=== PATIENT | male | born 1940 | race Caucasian/White ===

== ENCOUNTER 2018-08-11 07:04 | Outpatient (CLI) | payer MEDICARE, OTHER, SELFPAY ==
[2018-08-11 07:58] LABS: Anion Gap 5.7 mmol/L (3-11); BUN 9 mg/dL (7-18); CO2 29.3 mmol/L (21.0-32.0); CREATININE 0.61 mg/dL (0.70-1.30); Calcium 9.1 mg/dL (8.5-10.1); Chloride 99 mmol/L (98-107); Cholesterol 128 mg/dL (50-200); Glucose 93 mg/dL (70-100); HDL Cholesterol 60 mg/dL (40-60); LDL CHOLESTEROL 64 mg/dL (<100); Sodium 134 mmol/L (136-145); Triglyceride 41 mg/dL (30-150)
== END 2018-08-11 07:24 ==
PROVIDERS: PCP Nurse Practitioner Family; Visit Provider Nurse Practitioner Family
DX: E78.5 Hyperlipidemia, unspecified (principal); I10 Essential (primary) hypertension
CPT/HCPCS: 36415; 80048; 80061; 83721

== ENCOUNTER 2019-01-07 07:00 | Inpatient (IN) | payer MEDICARE, OTHER, SELFPAY ==
[2019-01-07] VITALS (21 sets, daily range): BP systolic 109–177; BP diastolic 62–97; PULSE 78–101; RESP 16–20; TEMP 35.6–37.1; O2SAT 84–99
--- NOTE | 2019-01-07 07:02 | DI.RAD_ITS ---
EXAM: XR HIP RT COMPLETE AP PELVIS INDICATION: pain s/p fall. COMPARISON: No exams were available for comparison TECHNIQUE: 2D digital imaging was performed. FINDINGS: Three views were obtained and show intertrochanteric fracture of the femur with moderate displacement . No additional fracture seen. IMPRESSION:
--- NOTE | 2019-01-07 07:03 | ED.GENADUL_ITS ---
Discharge Plan Disposition Patient Disposition: [facility] INPATIENT Condition: Stable Discharge Details Chief Complaint: Orthopedic Clinical Impression: Closed fracture of right hip Primary Care Provider: Yanely Lobato ED Provider: Tavo Du Home Meds and New Rx's Prescriptions: No Action fluticasone propion-salmeterol [Advair Diskus] 250-50 mcg/dose blister with device 1 inh IH BID Qty: 3 RF: 3 atorvastatin 40 mg tablet 40 mg PO DAILY Qty: 90 RF: 3 lisinopril 5 mg tablet 5 mg PO DAILY Qty: 90 RF: 3 albuterol sulfate [ProAir HFA] 90 mcg/actuation HFA aerosol inhaler 1 - 2 puff Inhalation .Q4-6H PRN (Reason: shortness of breath or wheezing) Qty: 3 RF: 3 Medical Decision Making 78 yo male comes in after he was walking his yellow lab and the dog pulled on his leash causing the patient to fall over and land on his right hip. Denies any loc and did not hit his head. Has no headache, neck pain, chest pain, abd pain. Has right hip pain over lateral portion of the hip. He has limited rom and even on passive rom can only slight elevate at hip joint due to pain. No pain in mid, distal femur, knee tib/fib ankle or foot and has intact sensation and pulses. Will xray the hip to eval for fx. HAs a skin tear on right forearm but has no pain or other deformity and full rom of the joints so do not feel xray indicated. Will have nursing place steri strips. xray on my read shows hip fracutre on the right, will consult with orthopedics Dr. Espinosa requests admission to hospitalist, could do surgery this afternoon if cleared. Spoke with Dr. Redman who accepts for admission Differential Diagnosis Differential Diagnosis: fracture, contusion, sprain, strain Imaging Data Radiologic Study: Attestation: I personally reviewed and interpreted this imaging study as follows: Imaging: X-Ray My impression: hip fracture Radiologic Study #2: Attestation: I personally reviewed and interpreted this imaging study as follows: Imaging: X-Ray My impression: no acute findings on chest xray HPI General Mode of arrival: EMS . Date/Time Provider Initiated Documentation: 01/07/19 07:02 . Limitations to Documentation: no limitations . Information obtained by: patient . History of Present Illness 78 year old M presents to the emergency department with the chief complaint of right hip pain, described as moderate, Quality is described as aching, and is localized to the lower extremity. Patient reports no radiation. Patient started experiencing this hour(s) (1) Patient did receive the following treatments prior to arrival, none Related Data Home Medications Medication Instructions Recorded Confirmed atorvastatin 40 mg tablet 40 mg PO DAILY #90 tab-cap 05/15/18 01/07/19 lisinopril 5 mg tablet 5 mg PO DAILY #90 tab-cap 05/15/18 01/07/19 fluticasone 250 mcg-salmeterol 50 1 inh IH BID #3 device 08/16/18 01/07/19 mcg/dose blistr powdr for inhalation albuterol sulfate 90 mcg/actuation 1 - 2 puff INHALATION .Q4-6H PRN 10/25/18 01/07/19 aerosol inhaler #3 unit Previous Rx's Medication Instructions Recorded atorvastatin 40 mg tablet 40 mg PO DAILY #90 tab-cap 05/15/18 lisinopril 5 mg tablet 5 mg PO DAILY #90 tab-cap 05/15/18 fluticasone 250 mcg-salmeterol 50 1 inh IH BID #3 device 08/16/18 mcg/dose blistr powdr for inhalation albuterol sulfate 90 mcg/actuation 1 - 2 puff INHALATION .Q4-6H PRN 10/25/18 aerosol inhaler #3 unit Allergies Allergy/AdvReac Type Severity Reaction Status Date / Time aspirin Allergy Unknown Unverified 01/07/19 07:15 hydrochlorothiazide AdvReac Mild Low Na+, Unverified 01/07/19 07:15 low Cl-, headaches ANIMAL DANDER Allergy Mild COUGH Uncoded 01/07/19 07:15 MOLDS AND SMUTS Allergy Mild ASTHMA Uncoded 01/07/19 07:15 Review of Systems Review of Systems ROS Unobtainable: All systems reviewed & are unremarkable except as noted in HPI and below Constitutional Constitutional: Denies chills, Denies fever(s) and Denies weakness ENT Ears, Nose, Mouth, and Throat: Denies change in voice Cardiovascular Cardiovascular: Denies chest pain and Denies dyspnea Respiratory Respiratory: Denies cough and Denies dyspnea Gastrointestinal Gastrointestinal: Denies abdominal pain, Denies nausea and Denies vomiting Neurologic Neurologic: Denies weakness PFSH Social History Smoking/Tobacco Use Status: Former Tobacco Use Alcohol Intake: current Alcohol Intake frequency: 0-2 drinks per day Drug use: Never Substance use type: does not use Adopted: No Caregiver/Support person: No Foster care: No Household members: spouse Number of Children: 10 Communication Needs: None Pets and animals: Yes Pets and animals: dog(s) Sexually active: No Current gender identity: male What type of physical activity do you participate in: walking and regular exercise Frequency: daily Seatbelt use: always Water heater temp set <120 deg: Yes Working smoke detector in home: Yes Fire extinguisher in home: Yes Carbon monox detector in home: Yes Firearms in home: Yes Do you feel safe at home: Yes Do you feel safe in your relationship?: Yes Exam Const General: no acute distress Orientation: alert HENMT Head: normal to inspection Ears: external ears normal General nose exam: external nose normal Mouth: moist mucous membranes Eyes General: appearance normal, both eyes and all related structures Neck Neck: normal visual inspection Resp Effort & Inspection: normal respiratory effort and able to speak in complete sentences Cardio Rate: regular rate Skin General skin exam: no rashes or lesions noted Neuro General: alert and oriented x3 Extrem General: normal capillary refill Psych Mental Status: mental status grossly normal
--- NOTE | 2019-01-07 07:26 | DI.RAD_ITS ---
EXAM: XR CHEST 1V IN DI DEPT INDICATION: hip fracture. COMPARISON: CHEST 2 VIEWS PA,LAT from 03/30/2010 TECHNIQUE: 2D digital imaging was performed. FINDINGS: The heart is not enlarged. Lungs show evidence of COPD and scarring, no focal consolidation seen. N o pleural effusion seen on this supine view. IMPRESSION:
--- NOTE | 2019-01-07 07:52 | DI.VRAD_ITS ---
PROCEDURE INFORMATION: Exam: XR Right Hip with Pelvis when Performed Exam date and time: 01/07/2019 7:22 AM Clinical history: 78 years old, male; Injury or trauma; Fall; Initial encounter; Blunt trauma (contusions or hematomas); Right; Hip TECHNIQUE: Imaging protocol: XR Right hip with pelvis when performed. Views: 2 or 3 views. COMPARISON: No relevant prior studies available. FINDINGS: Bones/joints: There is a mildly displaced, comminuted intertrochanteric fracture of the right femur without evidence of significant angulation. No dislocation. Soft tissues: Soft tissue swelling around the right hip. IMPRESSION: Right intertrochanteric fracture without dislocation. Dictated and Authenticated by: Yakelin Cronin MD. Ordering:MIRTHA Vo MD
--- NOTE | 2019-01-07 07:54 | DI.VRAD_ITS ---
PROCEDURE INFORMATION: Exam: XR Chest, 1 View Exam date and time: 01/07/2019 7:31 AM Clinical history: 78 years old, male; Pre-operative exam; Cardiovascular screening and respiratory screening exam TECHNIQUE: Imaging protocol: XR of the chest Views: 1 view. COMPARISON: No relevant prior studies available. FINDINGS: Lungs: Hyperaeration. Linear atelectasis or fibrotic changes are seen in the lower lungs. Mild peribronchial thickening. No evidence of pneumonia. Pleural space: Unremarkable. No pleural effusion. No pneumothorax. Heart/Mediastinum: Unremarkable. No cardiomegaly. Bones/joints: Unremarkable. IMPRESSION: No acute findings. COPD. Dictated and Authenticated by: Yakelin Cronin MD. Ordering:MIRTHA Vo MD
[2019-01-07 08:00] LABS: Abs Immature Grans 0.04 k/cumm (0.0-0.09); Absolute Basophil Count 0.02 k/cumm (0.0-0.2); Absolute Eosinophil Count 0.26 k/cumm (0.0-0.7); Absolute Lymphocyte Count 1.82 k/cumm (1.2-3.4); Absolute Monocyte Count 0.58 k/cumm (0.11-0.7); Basophils % 0.2; Eosinophils % 3.2; HCT 42.9 % (40.0-50.0); HGB 14.4 g/dL (13.5-17.5); Immature Grans % 0.5; Lymphocytes % 22.1; Mean Corp. HGB Concentration 33.6 g/dL (32.0-36.0); Mean Corpuscular Hemoglobin 30.1 pg (27.0-33.0); Mean Corpuscular Volume 89.6 fL (80-95); Mean Platelet Volume 8.7 fL (8.0-11.0); Monocytes % 7.1; Neutrophils % 66.9; Platelet Count 296 x1000/uL (130-400); RBC 4.79 m/cumm (4.50-6.00); RBC Distribution Width 12.7 % (11.8-14.1); White Blood Cell Count 8.22 k/cumm (4.4-10.8)
[2019-01-07 08:11] LABS: PTT Activated 28.1 sec (21.0-31.4); Prothrombin Time 10.1 sec (9.3-11.0)
[2019-01-07 08:14] LABS: ALT 27 U/L (16-63); AST 23 U/L (15-37); Albumin 3.2 g/dL (3.4-5.0); Alkaline Phosphatase 75 U/L (46-116); Anion Gap 5.6 mmol/L (3-11); BUN 10 mg/dL (7-18); Bilirubin, Total 0.6 mg/dL (0.2-1.0); CO2 30.4 mmol/L (21.0-32.0); CREATININE 0.69 mg/dL (0.70-1.30); Calcium 8.9 mg/dL (8.5-10.1); Chloride 98 mmol/L (98-107); Glucose 115 mg/dL (70-100); Magnesium 1.7 mg/dL (1.8-2.4); Potassium 4.6 mmol/L (3.5-5.1); Sodium 134 mmol/L (136-145); Total Protein 7.4 g/dL (6.4-8.2)
[2019-01-07 08:18] LABS: Troponin I < 0.05 ng/mL (0.00-0.06)
[2019-01-07] MEDS: Normal Saline 1,000 ML 125 ML IV ×2 (09:41→17:00)
[2019-01-07] MEDS: Bupivacaine LIPOSOME/PF 133 MG/10 ML VIAL IJ (11:05)
--- NOTE | 2019-01-07 11:13 | W.PM.HP.N ---
Date of service: 01/07/19 Time of Service: :13 Assessment and Plan Assessment and plan (1) Hip fracture: Status: Acute Assessment and plan: For surgical repair on the afternoon of admission - Patient has non-ischemic ECG changes with development of a new RBBB. This however is more likely on the basis of underlying pulmonary disease than CAD (i.e. PHTN in setting of long-standing lung disease). Mr. Boss has 4+ METS, is active, and without any symptoms of active coronary or cardiac disease. He also has no history of or clinical evidence of DM, CKD, or CAD/CHF. May proceed with planned, likely moderate risk procedure without need for further cardiac work-up or medication changes. However, will need further evaluation of this new ECG finding in the future. (2) Right bundle branch block (RBBB): Status: Acute Assessment and plan: New as compared to prior tracing from 2010. This is very likely on the basis of PHTN in the setting of long-standing pulmonary disease, but cannot rule out RV Dysfunction. Will recommend ECHO, PFTs, and potentially CT of the chest for evaluation in the near future - likely as outpatient. (3) Asthma: Status: Chronic Assessment and plan: Reported history of asthma, with a prior tobacco history. Previous work-up not available at this time. - Patient is slightly barrel chested, with distant heart sounds and prolonged expiratory phase on physical exam. CXR with COPD. Given prior history of tobacco question possibility of COPD vs. Asthma. For now continue home regimen of combination IGC/LABA, Duoneb as required. Would monitor respiratory status closely post-op. Qualifiers: Asthma severity: moderate Asthma persistence: persistent Asthma complication type: unspecified Qualified Code(s): J45.40 - Moderate persistent asthma, uncomplicated (4) Hyperlipidemia: Status: Chronic Assessment and plan: Continue statin therapy. Qualifiers: Hyperlipidemia type: unspecified Qualified Code(s): E78.5 - Hyperlipidemia, unspecified (5) Essential hypertension: Status: Chronic Assessment and plan: On low dose LUIS-I. (6) DVT prophylaxis: Status: Acute Assessment and plan: Chemical prophylaxis as per ortho. Maintain on SCDs for the time being. History of Present Illness History of Present Illness Chief Complaint: Hip Pain Narrative: Pleasant 78 year old man being admitted from [facility] Emergency Department with a diagnosis of a traumatic right sided hip fracture. Mr. Boss has a past Medical History significant for HTN, dyslipidemia, and Asthma. He reports a remote history of tobacco abuse, having quit at 37 years of age. The patient was out walking his dog and suffered a mechanical fall when his Labrador Retriever pulled on his leash causing a fall. He presented to the ED with ensuing right sided hip pain, and found to have a right sided Intertrochanteric Fracture without dislocation by imaging. His CXR was negative except for noted COPD, and labwork was essentially unremarkable, including troponin. ECG showed evidence of a RBBB, new compared to prior tracing in 2010. He was referred for admission for surgical repair of his hip fracture. 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 garcia Family History Mother No problems noted. Father Personal history of malignant neoplasm lymphoma 4ppd smoker Social History (Updated 01/07/19 @ 12:45 by Fili Redman MD) Smoking/Tobacco Use Status: Former Tobacco Use Alcohol Intake: current Alcohol Intake frequency: 0-2 drinks per day Drug use: Never Substance use type: does not use Adopted: No Caregiver/Support person: No Foster care: No Household members: spouse Number of Children: 10 Communication Needs: None Pets and animals: Yes Pets and animals: dog(s) Sexually active: No Current gender identity: male What type of physical activity do you participate in: walking and regular exercise Frequency: daily Seatbelt use: always Water heater temp set <120 deg: Yes Working smoke detector in home: Yes Fire extinguisher in home: Yes Carbon monox detector in home: Yes Firearms in home: Yes Do you feel safe at home: Yes Do you feel safe in your relationship?: Yes Additional Social history: , 5 adopted children and 5 children of his own. Remote history of tobacco use. 1-2 12 oz beers nightly. Denies illicit drug use. Meds Home Medications and Allergies Home Medications Medication Instructions Recorded Confirmed Type atorvastatin 40 mg tablet 40 mg PO DAILY #90 tab-cap 05/15/18 01/07/19 Rx lisinopril 5 mg tablet 5 mg PO DAILY #90 tab-cap 05/15/18 01/07/19 Rx fluticasone 250 mcg-salmeterol 50 1 inh IH BID #3 device 08/16/18 01/07/19 Rx mcg/dose blistr powdr for inhalation albuterol sulfate 90 mcg/actuation 1 - 2 puff INHALATION .Q4-6H PRN 10/25/18 01/07/19 Rx aerosol inhaler #3 unit Allergies Allergy/AdvReac Type Severity Reaction Status Date / Time aspirin Allergy Unknown Unverified 01/07/19 07:15 hydrochlorothiazide AdvReac Mild Low Na+, Unverified 01/07/19 07:15 low Cl-, headaches ANIMAL DANDER Allergy Mild COUGH Uncoded 01/07/19 07:15 MOLDS AND SMUTS Allergy Mild ASTHMA Uncoded 01/07/19 07:15 Exam Narrative Exam Narrative: General: Patient appears comfortable, AAOX3, NAD Neck: Supple CV: Regular, nontachycardic, S1S2, somewhat distant heart sounds. Pulmonary: Clear to auscultation bilaterally, no crackles, wheezing, or rhonchi. Prolonged expiratory phase. Abdomen: + Bowel Sounds, soft, nontender, nondistended Vascular: No lower extremity edema Psych: Normal mood and affect. Results Imaging Additional studies: Exam(s) PROCEDURE INFORMATION: Exam: XR Right Hip with Pelvis when Performed Exam date and time: 01/07/2019 7:22 AM Clinical history: 78 years old, male; Injury or trauma; Fall; Initial encounter; Blunt trauma (contusions or hematomas); Right; Hip TECHNIQUE: Imaging protocol: XR Right hip with pelvis when performed. Views: 2 or 3 views. COMPARISON: No relevant prior studies available. FINDINGS: Bones/joints: There is a mildly displaced, comminuted intertrochanteric fracture of the right femur without evidence of significant angulation. No dislocation. Soft tissues: Soft tissue swelling around the right hip. IMPRESSION: Right intertrochanteric fracture without dislocation. --------- Exam(s) PROCEDURE INFORMATION: Exam: XR Chest, 1 View Exam date and time: 01/07/2019 7:31 AM Clinical history: 78 years old, male; Pre-operative exam; Cardiovascular screening and respiratory screening exam TECHNIQUE: Imaging protocol: XR of the chest Views: 1 view. COMPARISON: No relevant prior studies available. FINDINGS: Lungs: Hyperaeration. Linear atelectasis or fibrotic changes are seen in the lower lungs. Mild peribronchial thickening. No evidence of pneumonia. Pleural space: Unremarkable. No pleural effusion. No pneumothorax. Heart/Mediastinum: Unremarkable. No cardiomegaly. Bones/joints: Unremarkable. IMPRESSION: No acute findings. COPD. Labs Result diagrams: 01/07/19 07:46 01/07/19 07:46 Labs: Laboratory Results - last 24 hr 01/07/19 01/07/19 01/07/19 07:46 07:46 07:46 WBC RBC Hgb Hct MCV MCH MCHC RDW Plt Count MPV Immature Gran % Neutrophils % Lymphocytes % Monocytes % Eosinophils % Basophils % Absolute Neutrophils Absolute Lymphocytes Absolute Monocytes Absolute Eosinophils Absolute Basophils PT 10.1 INR 1.0 APTT 28.1 Sodium 134 L Potassium 4.6 Chloride 98 Carbon Dioxide 30.4 Anion Gap 5.6 BUN 10 Creatinine 0.69 L Estimated GFR/1.73 m2 >= 60.00 Glucose 115 H Calcium 8.9 Magnesium 1.7 L Total Bilirubin 0.6 AST 23 ALT 27 Alkaline Phosphatase 75 Troponin I < 0.05 Total Protein 7.4 Albumin 3.2 L Patient ABO/Rh O Positive Antibody Screen Negative 01/07/19 07:46 WBC 8.22 RBC 4.79 Hgb 14.4 Hct 42.9 MCV 89.6 MCH 30.1 MCHC 33.6 RDW 12.7 Plt Count 296 MPV 8.7 Immature Gran % 0.5 Neutrophils % 66.9 Lymphocytes % 22.1 Monocytes % 7.1 Eosinophils % 3.2 Basophils % 0.2 Absolute Neutrophils 5.50 Absolute Lymphocytes 1.82 Absolute Monocytes 0.58 Absolute Eosinophils 0.26 Absolute Basophils 0.02 PT INR APTT Sodium Potassium Chloride Carbon Dioxide Anion Gap BUN Creatinine Estimated GFR/1.73 m2 Glucose Calcium Magnesium Total Bilirubin AST ALT Alkaline Phosphatase Troponin I Total Protein Albumin Patient ABO/Rh Antibody Screen Last Vital Signs Temp 36.9 C 01/07/19 09:45 Pulse 98 H 01/07/19 09:45 Resp 19 01/07/19 09:45 BP 177/62 H 01/07/19 09:45 Pulse Ox 92 L 01/07/19 09:45
--- NOTE | 2019-01-07 13:12 | DI.RAD_ITS ---
EXAM: XR HIP RT IN OR CLINICAL HISTORY: RIGHT HIP, FRACTURE. TECHNIQUE: C-arm fluoroscopy was utilized by Dr. Espinosa during reduction and internal fixation of pr oximal right femoral fracture. COMPARISON: XR HIP RT COMPLETE AP PELVIS from 01/07/2019 FINDINGS: Hard copy shows intramedullary brandi placed in the femur. Please see Dr. Espinosa's procedure note.
--- NOTE | 2019-01-07 16:00 | DI.RAD_ITS ---
EXAM: XR HIP RT COMPLETE AP PELVIS INDICATION: Check reduction and internal fixation R hip in RR.. COMPARISON: XR HIP RT COMPLETE AP PELVIS from 01/07/2019 TECHNIQUE: 2D digital imaging was performed. FINDINGS: Two views were obtained. There is a gamma nail transfixing proximal femoral fracture fragments. Ali gnment appears nearly anatomic. IMPRESSION:
[2019-01-07] MEDS: Ketorolac 15 MG/ML VIAL IVP ×2 (17:00→21:55)
[2019-01-07] MEDS: Docusate Sodium 100 MG CAP PO (19:20)
[2019-01-07] MEDS: Budesonide/Formoterol 160/4.5 6 GM 60 PUFF INH IH (19:21)
[2019-01-07] MEDS: Normal Saline 50 ML 200 ML (21:56)
[2019-01-08] VITALS (7 sets, daily range): BP systolic 104–127; BP diastolic 62–68; PULSE 74–87; RESP 16–18; TEMP 36.2–36.8; O2SAT 89–98
[2019-01-08] MEDS: Normal Saline 1,000 ML 125 ML IV (02:34)
[2019-01-08] MEDS: Ketorolac 15 MG/ML VIAL IVP ×3 (04:03→21:04)
[2019-01-08] MEDS: Normal Saline Flush 10 ML SYR IVP ×2 (04:04→21:07)
[2019-01-08 07:55] LABS: Anion Gap 8.4 mmol/L (3-11); BUN 10 mg/dL (7-18); CO2 24.6 mmol/L (21.0-32.0); CREATININE 0.63 mg/dL (0.70-1.30); Calcium 8.2 mg/dL (8.5-10.1); Chloride 101 mmol/L (98-107); Glucose 99 mg/dL (70-100); Magnesium 1.7 mg/dL (1.8-2.4); Potassium 4.8 mmol/L (3.5-5.1); Sodium 134 mmol/L (136-145)
[2019-01-08 08:19] LABS: Abs Immature Grans 0.03 k/cumm (0.0-0.09); Absolute Basophil Count 0.01 k/cumm (0.0-0.2); Absolute Eosinophil Count 0.01 k/cumm (0.0-0.7); Absolute Lymphocyte Count 1.63 k/cumm (1.2-3.4); Absolute Neutrophil Count 9.98 k/cumm (1.2-6.7); Basophils % 0.1; Eosinophils % 0.1; HGB 11.7 g/dL (13.5-17.5); Immature Grans % 0.2; Lymphocytes % 13.1; Mean Corp. HGB Concentration 33.4 g/dL (32.0-36.0); Mean Corpuscular Hemoglobin 30.6 pg (27.0-33.0); Mean Corpuscular Volume 91.6 fL (80-95); Mean Platelet Volume 9.6 fL (8.0-11.0); Monocytes % 6.4; Neutrophils % 80.1; Platelet Count 191 x1000/uL (130-400); RBC 3.82 m/cumm (4.50-6.00); RBC Distribution Width 12.8 % (11.8-14.1); White Blood Cell Count 12.46 k/cumm (4.4-10.8)
[2019-01-08] MEDS: Budesonide/Formoterol 160/4.5 6 GM 60 PUFF INH IH ×2 (08:25→21:05)
[2019-01-08] MEDS: Atorvastatin 40 MG TAB PO (08:27)
[2019-01-08] MEDS: Lisinopril 5 MG TAB PO (08:27)
[2019-01-08] MEDS: Pantoprazole 40 MG TABCR PO (08:27)
[2019-01-08] MEDS: Docusate Sodium 100 MG CAP PO ×3 (08:27→21:04)
[2019-01-08] MEDS: Multivitamin w/Minerals TAB 1 TAB PO (08:28)
--- NOTE | 2019-01-08 10:55 | ROE_ITS ---
DATE OF PROCEDURE: January 07, 2019 PREOPERATIVE DIAGNOSIS: Intertrochanteric fracture of the right femur. POSTOPERATIVE DIAGNOSIS: Same. PROCEDURE: Open reduction and internal fixation of intertrochanteric fracture of the right femur mamadou katz a long trochanteric femoral nail device. ANESTHESIA: General, Crispin Helm CRNA SURGEON: Juan Espinosa M.D. MAILROOM COORDINATOR: Makayla Simmons INDICATIONS: This is a 78-year-old white male who was knocked to the ground by his dog earlier this morning, sustaining an intertrochanteric fracture of his right femur. He was transported by [facility] to [facility], where I saw him in the Emergency Room. His intertrochanteric fracture extends through the greater trochanter down to below the lesser trochanter. For this reason, I think it would be best f ixed with a trochanteric femoral nail device rather than a compression screw and side plate. The ris ks and complications of the procedure have been explained to Mr. Boss and his family. They wished to have me proceed as soon as possible to repair his hip fracture and alleviate his pain. PROCEDURE: The patient was taken to the Operating Room on 01/07/19. He was placed supine on the ope rating table and a general anesthetic was administered. He was placed in unilateral traction on the fracture table; the fracture was aligned. The C-arm image intensifier showed good alignment of the f racture fragments on both AP and lateral views. At this point the right hip, right thigh, knee and u pper leg were prepped and draped free in the usual sterile fashion. An incision was made beginning at the tip of the trochanter and extending proximally about 3.5 inches in line with the shaft of the femur. The incision was carried down through the abductor fascia. Us ing my finger I localized the tip of the trochanter and then using a tissue protection sleeve I place d a guidewire in appropriate position just medial to the tip of the greater trochanter and down the f emoral shaft distal to the lesser trochanter. A one-step 14 mm reamer was then used to ream the femo ral canal to below the level of the lesser trochanter. A long flexible guidewire was then passed do wn the femoral shaft to the supracondylar region of the femur. Good position of the guidewire was co nfirmed with the C-arm image intensifier. I then performed serial reaming with flexible reamers up t o 13 mm. The length of the nail had been measured at 400 mm. A 400 mm long, 11 mm diameter trochant flavia femoral nail was then inserted using the attached outrigger handle. The nail was advanced by atilio ludwig until it was felt to be at appropriate level, and then I attached to the outrigger guides to inser t the helical blade. The guides were advanced to the skin and a skin incision was made maybe an inch to an inch and a half long, and then it was carried through the IT band to the shaft of the femur. The sleeve for the helical blade drill was then advanced until it engaged the lateral cortex of the f emur. A guide pin was then placed through the sleeve and through the IM nail to the center of the fe moral head on both AP and lateral views. The pin was advanced to within 10 mm of the subchondral bon e. Measurement was then made of the pin and it was felt that a 100 mm helical blade was the proper l ength. The drill for the helical blade was then passed over the guidewire and just the lateral mago x was reamed. The 100 mm helical blade was then inserted over the guide pin and impacted into place until fully seated. The C-arm image intensification revealed position of the helical blade in the ce nter of the femoral head and within 10 mm of the subchondral bone of the femoral head. The guide pin was removed. Proximally the locking screw was then tightened through the nail to the helical blade and then backed off a half of a turn of the screwdriver. The outrigger guide was removed from the fe mur. We then put the C-arm perpendicular to the distal femur so that the distal holes in the IM nail were clearly visualized. The leg was rotated until the holes were fully seen and then an incision was mad e overlying the screw holes through the IT band and to the femur with the help of C-arm image intensi fication guidance. Using a freehand technique, I drilled through the sliding hole of the nail and in serted a 46 mm, 5.0 mm locking bolt. The wounds were irrigated with tranexamic acid in saline solution. The wound margins were infiltrate d with 0.5% Marcaine with an epinephrine solution. The distal incision for the locking screw was dea sed with interrupted #2-0 Vicryl suture for the IT band and skin jeronimo. The stab wound for the hel ical blade was closed with just jeronimo. The proximal incision for insertion of the nail was closed with an interlocked, running #1 Vicryl suture to close the abductor fascia. The subcu was approximat ed with interrupted #2-0 Vicryl sutures. The skin edges were approximated with skin jeronimo. Steril e dressings were applied. The patient was taken out of traction and then transferred to his hospital bed and then to the recovery room in good condition. Estimated blood loss was 75-100 cc's. The pat ient tolerated the procedure well and was discharged to the recovery room in good condition.
[2019-01-08] MEDS: Normal Saline 1,000 ML 60 ML IV (10:57)
--- NOTE | 2019-01-08 10:57 | PT.INIE ---
Date of service: 01/08/19 Time of Service: 09:20 PT Notes Inpatient Physical Therapy Evaluation Date: 01/08/2019 Referring Doctor: Fili Redman MD PT Orders: PT CONSULT: Routine Precautions: Fall. Standard. WBAT R Patient Profile/Admitting Diagnosis: Patient is a 78-year-old male s/p R Hip ORIF on POD 1 following a fall on 01/07/2019 involving his 2-month old Labrador who pulled on the leash and caused him to land on the road with his hip first. 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 garcia Social History/Home Situation: Patient lives in a one-story home with his with no steps to enter. 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 Equipment Owned/DME: None. Subjective: Patient does not report pain at rest. He says he is anxious to get up because he has been in bed since his surgery. He denies headache, lightheadedness, and dizziness. He is agreeable to PT evaluation. Objective: General Observation: Patient is seen laying in bed supine with HOB elevated. He has an antithromboembolic device on his L LE and an IV in his L UE. Mental Status: Alert and oriented x 4 Pain: 0/10 at rest. Mild discomfort with ambulation. Vital Signs: 88-94% SaO2 with ambulation. ROM: Right Lower Extremity: Hip flexion 90-100 degrees. Hip abduction WFL. Knee flexion WFL. Ankle dorsiflexion WFL. Ankle plantarflexion WFL. Left Lower Extremity: Hip flexion 90 degrees. Hip abduction WFL. Knee flexion WFL. Ankle dorsiflexion WFL. Ankle plantarflexion WFL. Strength: Right Lower Extremity: Hip flexors 3-/5. Knee flexors 4/5. Knee extensors 3+/5. Ankle dorsiflexors 3+/5. Ankle plantarflexors 4/5. Left Lower Extremity:Hip flexors 3-/5. Knee flexors 2+/5. Knee extensors 3-/5. Ankle dorsiflexors 3+/5. Ankle plantarflexors 4/5. Bed Mobility/Transfers: Rolling SBA Supine to sit SBA Sit to supine SBA Sit to stand Minimal assist of 1 Stand to sit Minimal assist of 1 Bed to chair CGA Chair to bed CGA Gait: Patient exhibited a step-to gait pattern using a FWW, CGA and wheelchair follow. He showed decreased step height, length, conrad, and overall gait speed. He ambulated 20?. Patient denies headache, chest pain, and dizziness. he did report his R hip being achy. Balance: Static Sitting: Normal Dynamic Sitting: Good Static Standing: Fair Dynamic Standing: Fair Special Tests: Mobility Limitations Standardized Measure [facility] AM-PAC 6 clicks Basic Mobility Inpatient Short Form: Raw Score: 18 CMS Score: 47% Informed Consent/Education: Patient instructed in purpose of PT consult and plan of care. Patient was given exercises consisting of seated marches, leg raises, and heel-toe raises x 10 reps every hour. Assessment: Patient is a 78 year old male s/p R hip fracture ORIF POD 1. He felt ready to get up when PT arrived for evaluation. He was able to ambulate 20? with FWW and wheelchair follow. He has deficits in strength in B LEs. He lives in [facility] with his and has a good support system. His prognosis is good. Patient presents with clinical signs and symptoms consistent with current/admitting diagnoses that have resulted to mobility limitations, gait instability, generalized weakness, and impairment of motor control as demonstrated by the following impairment level findings: 1. Decreased strength to B LE major muscle groups 2. Impaired sitting/standing balance 3. Impaired activity tolerance 4. Limitation of joint range of motion in B hip flexion Impairments are contributing to the following functional limitations: 1. Dependent bed mobility skills 2. Increased dependence with transfers 3. Inability to safely ambulate without assistive device and physical assistance 4. Increase completion time for mobility ADL performance 5. Increased fall risk 6. Inability to negotiate steps alone safely [place] 43298 moderate complexity based on the following: History: Patient is a 78-year-old male s/p R Hip ORIF on POD 1 following a fall on 01/07/2019 Examination: Demonstrable impairment in strength, balance, and range of motion with underlying impairments and functional limitations as documented above Presentation: Evolving Decision Makin Moderate complexity Goals: Goals X1 week 1. Supine-Sit independent 2. Sit-Supine independent 3. Sit-Stand independent 4. Stand-Sit independent 5. Bed-Chair independent 6. Chair-Bed independent 7. Independent gait on level surface with use of least restrictive device for at least 300 feet without report of pain nor dyspnea 8. Independent stair negotiation while holding onto bilateral rails for at least 5 steps without report of pain nor dyspnea 9. Independent with home exercise program 10. Good static and dynamic standing balance/tolerance Plan of Care/Treatment Plan: 1-2x/day, 7 days/week x 1 week. Plan of care has been reviewed with the MANAGER OF COMPENSATION providing the service under Physical Therapy direction. Initiate Physical Therapy intervention for strengthening, bed mobility, transfers, gait, stairs, balance training, use of assistive device. DISCHARGE RECOMMENDATIONS: Patient will be discharged to home under the care of his once all of the above goals are met and he is medically stable. Patient will benefit from use of a front-wheeled walker upon discharge from this facility to maximize mobility independence and reduce fall risk at home. TREATMENT CODE/TIME: 31447 x 15 minutes, 86486 x 10 minutes beginning at 9:20 AM. Thank you very much for this referral. Dave Floyd [facility] With supervision of: Dianne Cowan PT, DPT, CLT [facility]
--- NOTE | 2019-01-08 11:21 | PHARADMIT ---
Admission Pharmacy Clinical Review hip fracture Code Status Full Code Current Weight 61.6 kg Renally Cleared and Narrow Therapeutic Index Meds Crcl ~68.0 mL/min current meds okay QTc Value / Action Taken QTc 485 has promethazine and albuterol ordered BP Control, Fever BP 104/62 afebrile Electrolytes reviewed Na 134 mag 1.7 DVT Prophylaxis enoxaparin Opiate Usage / Scheduled Bowel Regimen Ordered prn/prn Plt/SCr for Heparin / Enoxaparin plt 191 SCr 0.63 INR for Warfarin n/a H/H stable, WBC/Bands h/h 11.7/35.0 WBC 12.46 Antibiotic appropriateness cefazolin Cultures and Sensitivities none Surgical ABX d/c within 24 hr yes, ends today DM control / Insulin Dosing BG 99 none Heart Failure (Check EF%) (LUIS's, B-Block, Diuretics) lisinopril IV to PO Switch n/a Home Meds Reviewed has two long acting Beta2-agonist steroid combinations on home med list Home Meds Not Ordered cephalexin and advair (has symbicort ordered) Comments
[2019-01-08] MEDS: Magnesium Oxide 400 MG TAB 800 MG PO (12:02)
--- NOTE | 2019-01-08 12:11 | W.PM.PROGNOT ---
Date of Service Date of service: 01/08/19 Time of Service: 12:11 Assessment and Plan Assessment and plan (1) Hip fracture: Status: Acute Assessment and plan: Assessment: Stable postop day #1 TFN for intertrochanteric fracture of the right femur. Plan: Mobilize per protocol for hip fracture. DC IV fluids. Recheck hemoglobin tomorrow. Will DC home when he is independent with transfers and ambulation and taking only p.o. pain meds. Subjective Subjective Interval history since last seen: He has much less pain today than yesterday. He is not taking anything orally for pain. Exam Narrative Exam Narrative: He is afebrile vital signs are stable. Hemoglobin 11.7 g today. He is sitting comfortably in the chair. He is already walked outside the room today. I remove the Louis bandage from his knee. Distal stab wound the lateral thigh is dry and sealed. He has no effusion in his knee. Neurovascular examination of the right lower extremity is normal. He is flexing his right hip easily to 90 degrees without discomfort. Objective Objective Clinical Data: Abnormal lab results 01/08/19 01/08/19 Range/Units 07:16 07:16 WBC 12.46 H D (4.4-10.8) k/cumm RBC 3.82 L (4.50-6.00) m/cumm Hgb 11.7 L D (13.5-17.5) g/dL Hct 35.0 L (40.0-50.0) % Absolute Neutrophils 9.98 H (1.2-6.7) k/cumm Absolute Monocytes 0.80 H (0.11-0.7) k/cumm Sodium 134 L (136-145) mmol/L Creatinine 0.63 L (0.70-1.30) mg/dL Calcium 8.2 L (8.5-10.1) mg/dL Magnesium 1.7 L (1.8-2.4) mg/dL Vital Signs Temperature 36.2 C L 01/08/19 00:20 Temperature Source Tympanic 01/08/19 00:20 Pulse 76 01/08/19 00:20 Pulse Rhythm Regular 01/08/19 09:00 Respiratory Rate 16 01/08/19 00:20 Respiratory Effort Non-Labored 01/08/19 09:00 Respiratory Depth Normal 01/08/19 09:00 Respiratory Pattern Normal 01/08/19 09:00 Blood Pressure 104/62 01/08/19 00:20 Blood Pressure Mean 108 01/07/19 08:01 Blood Pressure Position Supine 01/07/19 07:01 Pulse Oximetry 94 L 01/08/19 10:46 Respiratory End-tidal CO2 23 01/07/19 16:10 Oxygen Delivery Method Room Air 01/08/19 10:46 Oxygen Flow Rate 0 01/08/19 10:46 Pain Level 3 01/08/19 04:03 Intake & Output 01/07/19 01/08/19 01/08/19 23:59 11:59 23:59 Intake Total 1110 / 1110 2700 / 2700 Output Total 500 / 700 650 / 650 Balance 610 / 410 2049 / 2049 Intake: IV 1050 / 1050 2100 / 2100 Oral 60 / 60 600 / 600 Output: Urine 300 / 500 650 / 650 Estimated Blood Loss 200 / 200 Other: Urine Color Yellow Light Melissa Urine Appearance Clear Clear Comment removed cath @ 0855 Emesis Description None Laboratory Results WBC 12.46 k/cumm (4.4-10.8) H D 01/08/19 07:16 RBC 3.82 m/cumm (4.50-6.00) L 01/08/19 07:16 Hgb 11.7 g/dL (13.5-17.5) L D 01/08/19 07:16 Hct 35.0 % (40.0-50.0) L 01/08/19 07:16 MCV 91.6 fL (80-95) 01/08/19 07:16 MCH 30.6 pg (27.0-33.0) 01/08/19 07:16 MCHC 33.4 g/dL (32.0-36.0) 01/08/19 07:16 RDW 12.8 % (11.8-14.1) 01/08/19 07:16 Plt Count 191 x1000/uL (130-400) D 01/08/19 07:16 MPV 9.6 fL (8.0-11.0) 01/08/19 07:16 Immature Gran % 0.2 01/08/19 07:16 Neutrophils % 80.1 01/08/19 07:16 Lymphocytes % 13.1 01/08/19 07:16 Monocytes % 6.4 01/08/19 07:16 Eosinophils % 0.1 01/08/19 07:16 Basophils % 0.1 01/08/19 07:16 Absolute Neutrophils 9.98 k/cumm (1.2-6.7) H 01/08/19 07:16 Absolute Lymphocytes 1.63 k/cumm (1.2-3.4) 01/08/19 07:16 Absolute Monocytes 0.80 k/cumm (0.11-0.7) H 01/08/19 07:16 Absolute Eosinophils 0.01 k/cumm (0.0-0.7) 01/08/19 07:16 Absolute Basophils 0.01 k/cumm (0.0-0.2) 01/08/19 07:16 PT 10.1 sec (9.3-11.0) 01/07/19 07:46 INR 1.0 (0.9-1.1) 01/07/19 07:46 APTT 28.1 sec (21.0-31.4) 01/07/19 07:46 Sodium 134 mmol/L (136-145) L 01/08/19 07:16 Potassium 4.8 mmol/L (3.5-5.1) 01/08/19 07:16 Chloride 101 mmol/L (98-107) 01/08/19 07:16 Carbon Dioxide 24.6 mmol/L (21.0-32.0) 01/08/19 07:16 Anion Gap 8.4 mmol/L (3-11) 01/08/19 07:16 BUN 10 mg/dL (7-18) 01/08/19 07:16 Creatinine 0.63 mg/dL (0.70-1.30) L 01/08/19 07:16 Estimated GFR/1.73 m2 >= 60.00 (mL/min/1.73m2) 01/08/19 07:16 Glucose 99 mg/dL (70-100) 01/08/19 07:16 Calcium 8.2 mg/dL (8.5-10.1) L 01/08/19 07:16 Magnesium 1.7 mg/dL (1.8-2.4) L 01/08/19 07:16 Total Bilirubin 0.6 mg/dL (0.2-1.0) 01/07/19 07:46 AST 23 U/L (15-37) 01/07/19 07:46 ALT 27 U/L (16-63) 01/07/19 07:46 Alkaline Phosphatase 75 U/L (46-116) 01/07/19 07:46 Troponin I < 0.05 ng/mL (0.00-0.06) 01/07/19 07:46 Total Protein 7.4 g/dL (6.4-8.2) 01/07/19 07:46 Albumin 3.2 g/dL (3.4-5.0) L 01/07/19 07:46 Patient ABO/Rh O Positive 01/07/19 07:46 Antibody Screen Negative 01/07/19 07:46
--- NOTE | 2019-01-08 15:59 | PT.INTREAT ---
Date of service: 01/08/19 Time of Service: 16:00 PT Notes Inpatient Physical Therapy Treatment Note [facility] Date: 01/08/19 PRECAUTIONS: Fall, WBAT R SUBJECTIVE: Jairo is agreeable to participating in PT, he states that he has been sitting up in a chair for most of the day. OBJECTIVE: PAIN: Patient c/o R LE pain with transfers, ther ex and gait training BED MOBILITY/TRANSFERS Sit-supine: I with HOB flat Sit-stand: SBA Stand-sit: SBA GAIT Assistive Device: FWW Weight bearing: WBAT R Assist: SBA Distance: 80' THEREX: Patient completed a LE strengthening program, in a supine position, as per flow sheet. ASSESSMENT: Patient tolerated session with c/o increased R LE pain ther ex. She was able to tolerate a progression in gait distance with FWW support and SBA. He would benefit from continued gait and transfer training as well as strengthening for improved mobility and activity tolerance. PLAN: Continue with PT's POC TREATMENT CODE/TIME: 25 minutes; [id number], [id number]
--- NOTE | 2019-01-08 16:29 | W.PM.PROGNOT ---
Date of Service Date of service: 01/08/19 Time of Service: 16:30 Assessment and Plan Assessment and plan (1) Hip fracture: Status: Acute Assessment and plan: S/p ORIF of the right femur fracture on 11/07. Continue pain control, PT, and mobilize per ortho recommendations. (2) Right bundle branch block (RBBB): Status: Acute Assessment and plan: New as compared to prior tracing from 2010. This is very likely on the basis of PHTN in the setting of long-standing pulmonary disease, but cannot rule out RV Dysfunction. Will recommend ECHO, PFTs, and potentially CT of the chest for evaluation in the near future - likely as outpatient. This was communicated with the patient today. (3) Asthma: Status: Chronic Assessment and plan: Reported history of asthma, with a prior tobacco history. Previous work-up not available at this time. Breathing reportedly at baseline. Continue home regimen of combination IGC/LABA, Duoneb as required. Qualifiers: Asthma severity: moderate Asthma persistence: persistent Asthma complication type: unspecified Qualified Code(s): J45.40 - Moderate persistent asthma, uncomplicated (4) Hyperlipidemia: Status: Chronic Assessment and plan: Continue statin therapy. Qualifiers: Hyperlipidemia type: unspecified Qualified Code(s): E78.5 - Hyperlipidemia, unspecified (5) Essential hypertension: Status: Chronic Assessment and plan: On low dose LUIS-I. (6) DVT prophylaxis: Status: Acute Assessment and plan: Chemical prophylaxis as per ortho. (7) Discharge planning issues: Status: Acute Assessment and plan: Plan for discharge home when independent with transfers and ambulation, and when pain is controlled with only oral medications. Subjective Subjective Interval history since last seen: Pleasant 78 year old man admitted from [facility] Emergency Department on 01/07 with a diagnosis of a traumatic right sided hip fracture. Mr. Boss has a past Medical History significant for HTN, dyslipidemia, and Asthma. He also has a remote history of tobacco abuse, having quit at 37 years of age. The patient was out walking his dog and suffered a mechanical fall when his Labrador Retriever pulled on his leash causing a fall. He presented to the ED with ensuing right sided hip pain, and found to have a right sided Intertrochanteric Fracture without dislocation by imaging. His CXR was negative except for noted COPD, and labwork was essentially unremarkable, including troponin. ECG showed evidence of a RBBB, new compared to prior tracing in 2010. He was referred for admission for surgical repair of his hip fracture. Since admission Mr. Boss has undergone surgical repair of the hip, and reports discomfort at the site but with adequate pain control. His breathing is reportedly at baseline. No overnight events repoted. Remains afebrile. Exam Narrative Exam Narrative: General: Patient appears comfortable, AAOX3, NAD Neck: Supple CV: Regular, nontachycardic, S1S2, somewhat distant heart sounds. Pulmonary: Clear to auscultation bilaterally, no crackles, wheezing, or rhonchi. Prolonged expiratory phase. Abdomen: + Bowel Sounds, soft, nontender, nondistended Vascular: No lower extremity edema Psych: Normal mood and affect. Objective Objective Clinical Data: Abnormal lab results 01/08/19 01/08/19 Range/Units 07:16 07:16 WBC 12.46 H D (4.4-10.8) k/cumm RBC 3.82 L (4.50-6.00) m/cumm Hgb 11.7 L D (13.5-17.5) g/dL Hct 35.0 L (40.0-50.0) % Absolute Neutrophils 9.98 H (1.2-6.7) k/cumm Absolute Monocytes 0.80 H (0.11-0.7) k/cumm Sodium 134 L (136-145) mmol/L Creatinine 0.63 L (0.70-1.30) mg/dL Calcium 8.2 L (8.5-10.1) mg/dL Magnesium 1.7 L (1.8-2.4) mg/dL Vital Signs Temperature 36.8 C 01/08/19 16:04 Temperature Source Tympanic 01/08/19 16:04 Pulse 83 01/08/19 16:04 Pulse Rhythm Regular 01/08/19 09:00 Respiratory Rate 18 01/08/19 16:04 Respiratory Effort Non-Labored 01/08/19 09:00 Respiratory Depth Normal 01/08/19 09:00 Respiratory Pattern Normal 01/08/19 09:00 Blood Pressure 123/68 01/08/19 16:04 Blood Pressure Mean 108 01/07/19 08:01 Blood Pressure Position Supine 01/07/19 07:01 Pulse Oximetry 92 L 01/08/19 16:04 Respiratory End-tidal CO2 23 01/07/19 16:10 Oxygen Delivery Method Nasal Cannula 01/08/19 16:04 Oxygen Flow Rate 0.5 01/08/19 16:04 Pain Level 0 01/08/19 16:04 Intake & Output 01/07/19 01/08/19 01/08/19 23:59 11:59 23:59 Intake Total 1110 / 1110 2700 / 3087 387 / 3087 Output Total 500 / 700 650 / 650 Balance 610 / 410 2050 / 2437 387 / 2437 Intake: IV 1050 / 1050 2100 / 2247 147 / 2247 Oral 60 / 60 600 / 840 240 / 840 Output: Urine 300 / 500 650 / 650 Estimated Blood Loss 200 / 200 Other: Urine Color Yellow Light Melissa Urine Appearance Clear Clear Comment removed cath @ 0855 Emesis Description None Laboratory Results WBC 12.46 k/cumm (4.4-10.8) H D 01/08/19 07:16 RBC 3.82 m/cumm (4.50-6.00) L 01/08/19 07:16 Hgb 11.7 g/dL (13.5-17.5) L D 01/08/19 07:16 Hct 35.0 % (40.0-50.0) L 01/08/19 07:16 MCV 91.6 fL (80-95) 01/08/19 07:16 MCH 30.6 pg (27.0-33.0) 01/08/19 07:16 MCHC 33.4 g/dL (32.0-36.0) 01/08/19 07:16 RDW 12.8 % (11.8-14.1) 01/08/19 07:16 Plt Count 191 x1000/uL (130-400) D 01/08/19 07:16 MPV 9.6 fL (8.0-11.0) 01/08/19 07:16 Immature Gran % 0.2 01/08/19 07:16 Neutrophils % 80.1 01/08/19 07:16 Lymphocytes % 13.1 01/08/19 07:16 Monocytes % 6.4 01/08/19 07:16 Eosinophils % 0.1 01/08/19 07:16 Basophils % 0.1 01/08/19 07:16 Absolute Neutrophils 9.98 k/cumm (1.2-6.7) H 01/08/19 07:16 Absolute Lymphocytes 1.63 k/cumm (1.2-3.4) 01/08/19 07:16 Absolute Monocytes 0.80 k/cumm (0.11-0.7) H 01/08/19 07:16 Absolute Eosinophils 0.01 k/cumm (0.0-0.7) 01/08/19 07:16 Absolute Basophils 0.01 k/cumm (0.0-0.2) 01/08/19 07:16 PT 10.1 sec (9.3-11.0) 01/07/19 07:46 INR 1.0 (0.9-1.1) 01/07/19 07:46 APTT 28.1 sec (21.0-31.4) 01/07/19 07:46 Sodium 134 mmol/L (136-145) L 01/08/19 07:16 Potassium 4.8 mmol/L (3.5-5.1) 01/08/19 07:16 Chloride 101 mmol/L (98-107) 01/08/19 07:16 Carbon Dioxide 24.6 mmol/L (21.0-32.0) 01/08/19 07:16 Anion Gap 8.4 mmol/L (3-11) 01/08/19 07:16 BUN 10 mg/dL (7-18) 01/08/19 07:16 Creatinine 0.63 mg/dL (0.70-1.30) L 01/08/19 07:16 Estimated GFR/1.73 m2 >= 60.00 (mL/min/1.73m2) 01/08/19 07:16 Glucose 99 mg/dL (70-100) 01/08/19 07:16 Calcium 8.2 mg/dL (8.5-10.1) L 01/08/19 07:16 Magnesium 1.7 mg/dL (1.8-2.4) L 01/08/19 07:16 Total Bilirubin 0.6 mg/dL (0.2-1.0) 01/07/19 07:46 AST 23 U/L (15-37) 01/07/19 07:46 ALT 27 U/L (16-63) 01/07/19 07:46 Alkaline Phosphatase 75 U/L (46-116) 01/07/19 07:46 Troponin I < 0.05 ng/mL (0.00-0.06) 01/07/19 07:46 Total Protein 7.4 g/dL (6.4-8.2) 01/07/19 07:46 Albumin 3.2 g/dL (3.4-5.0) L 01/07/19 07:46 Patient ABO/Rh O Positive 01/07/19 07:46 Antibody Screen Negative 01/07/19 07:46
[2019-01-08] MEDS: Enoxaparin 30 MG/0.3 ML SYR SC (16:33)
--- NOTE | 2019-01-08 17:11 | INITIAL_ITS ---
- If Service Date Differs Date of service: 01/08/19 Time of Service: 17:11 Care Management Initial Assess REASON FOR HOSPITALIZATION:: Hip Fracture PAST MEDICAL HISTORY/PAST SURGICAL HISTORY:: Medical History. Asthma (Chronic 12/21/12). Blindness of right eye (Chronic 01/19/13). Erectile dysfunction (Chronic). Essential hypertension (Chronic 12/21/12). Hyperlipidemia (Chronic 04/23/13). 07/2018 labs: on high intensity statin therapy with good response in the lipid panel. Surgical History. Hernia Repair, Incisional (Resolved ~2010) PREVIOUS FUNCTIONAL STATUS/SOCIAL/FAMILY SUPPORTS:: Jairo lives in a single story home in [facility] with his , Oswaldo. His house is completely handicap accessible. He has two adult son and an adult daughter, and two grandchildren. He and his have also adopted five children and fostered countless others. 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 He is independent at baseline. CURRENT FUNCTIONAL STATUS:: Jairo was sitting up in his chair eating his lunch when CM met with him. He was pleasant and forthcoming with details about his life. He reported that he is feeling better today. He knows that his recovery will be long, and expressed concern about missing work for a long period of time. He stated that his plan of care is to discharge once he is more comfortable moving, possibly in a day or two. CM will continue to follow. ADVANCE DIRECTIVES:: None on file at [facility]. Jairo reports completing one with his financial risk manager, which CM advised him to request that his financial risk manager send a copy to his PCP and/or [facility]. Has patient been provided with information about the portal?: Yes Did the patient sign up for the portal?: No (Not interested) CODE STATUS:: Full Code INSURANCE COVERAGE / FINANCIAL ISSUES:: MCR CURRENT HOME/COMMUNITY SERVICES/EQUIPMENT:: None at this time. PRIMARY CARE PHYSICIAN:: Yanely Lobato POTENTIAL DISCHARGE NEEDS:: Evaluations for further needs, follow up appointment with ortho, as recommended. PATIENT/FAMILY EDUCATION NEEDS:: Review community based supports, discharge plan, discussion of self care needs including Ask Me Three ANTICIPATED BARRIERS TO DISCHARGE:: None identified at this time. TRANSPORTATION:: Private vehicle driven by his , Oswaldo. PLAN:: Anticipate Jairo will return home when medically cleared with no additional services. He will have follow ups with PCP, Ortho, and PT as recommended. His , Oswaldo, will drive him home via private vehicle. CM will continue to follow.
[2019-01-08] MEDS: Acetaminophen 325 MG TAB PO ×2 (18:15→21:04)
[2019-01-09] MEDS: Ketorolac 15 MG/ML VIAL IVP ×2 (03:36→10:40)
[2019-01-09] MEDS: Normal Saline Flush 10 ML SYR IVP ×2 (03:37→10:40)
[2019-01-09 04:12] VITALS: BP 121/76; PULSE 73; RESP 18; TEMP 37; O2SAT 91
[2019-01-09 07:39] LABS: HCT 34.8 % (40.0-50.0); HGB 11.5 g/dL (13.5-17.5); Mean Corpuscular Hemoglobin 30.3 pg (27.0-33.0); Mean Corpuscular Volume 91.6 fL (80-95); Platelet Count 210 x1000/uL (130-400); RBC Distribution Width 12.8 % (11.8-14.1); White Blood Cell Count 10.79 k/cumm (4.4-10.8)
[2019-01-09 07:55] VITALS: BP 127/64; PULSE 84; RESP 16; TEMP 36; O2SAT 93
[2019-01-09] MEDS: Lisinopril 5 MG TAB PO (08:14)
[2019-01-09] MEDS: Pantoprazole 40 MG TABCR PO (08:14)
[2019-01-09] MEDS: Docusate Sodium 100 MG CAP PO (08:14)
[2019-01-09] MEDS: Atorvastatin 40 MG TAB PO (08:14)
[2019-01-09] MEDS: Multivitamin w/Minerals TAB 1 TAB PO (08:14)
[2019-01-09] MEDS: Budesonide/Formoterol 160/4.5 6 GM 60 PUFF INH IH (09:50)
[2019-01-09 11:50] VITALS: BP 122/73; PULSE 96; RESP 17; TEMP 35.6; O2SAT 92
--- NOTE | 2019-01-09 13:45 | DSE_ITS ---
Date of service: 01/09/19 Time of Service: 13:45 DS: Diagnosis Discharge Diagnosis (1) Hip fracture: Status: Acute (2) Right bundle branch block (RBBB): Status: Acute (3) Asthma: Status: Chronic (4) Hyperlipidemia: Status: Chronic (5) Essential hypertension: Status: Chronic Discharge Plan Disposition Patient Disposition: HOME W/HOME HEALTH SERVICE Condition: Stable Discharge Details Chief Complaint: Orthopedic Clinical Impression: Closed fracture of right hip Reason For Visit: HIP FRACTURE Admit Date/Time: 01/07/19 07:54 Admit Provider: Fili Redman Attending Provider: Fili Redman Primary Care Provider: Yanely Lobato ED Provider: Tavo Du Hospital Course Hospital Course: Chief Complaint: Hip Pain HPI: Pleasant 78 year old man admitted from [facility] Emergency Department on 01/07 with a diagnosis of a traumatic right sided hip fracture. Mr. Boss has a past Medical History significant for HTN, dyslipidemia, and As thma. He also has a remote history of tobacco abuse, having quit at 37 years of age. The patient was out walking his dog and suffered a mechanical fall when his Labrador Retriever pulled on his leash causing a fall. He presented to the ED with ensuing right sided hip pain, and found to have a right sided Intertrochanteric Fracture without dislocation by imaging. His CXR was negative except for noted COPD, and labwork was essentially unremarkable, including troponin. ECG showed evidence of a RBBB, new compared to prior tracing in 2010. He was referred for admission for surgical repair of his hip fracture. Since admission Mr. Boss has undergone surgical repair of the hip, and reports discomfort at the site but with adequate pain control - has been very hesitant at taking opioid pain medications. Physical therapy has deemed him safe for return home with home health services for PT. His breathing is reportedly at baseline. No overnight events repoted. Remains afebrile. Hospital Course: (1) Hip fracture: S/p ORIF of the right femur fracture on 11/07. Continue pain control, with home PT upon discharge and pain control. Will initiate twice daily low-dose aspirin for DVT prophylaxis, until discontinued by orthopedic surgery upon his follow-up with them as an outpatient. Home VNA to follow-up with wound care as well at the site of intervention. (2) Right bundle branch block (RBBB): New as compared to prior tracing from 2010. This is very likely on the basis of PHTN in the setting of long-standing pulmonary disease, but cannot rule out RV Dysfunction. Will recommend ECHO, PFTs, and potentially CT of the chest for evaluation in the near future - likely as outpatient. This was communicated with the patient in detail. (3) Asthma: Reported history of asthma, with a prior remote tobacco history. Previous work- up not available at this time. Breathing reportedly at baseline. Continue home regimen of combination IGC/LABA, Duoneb as required. (4) Hyperlipidemia: Continue statin therapy. (5) Essential hypertension: On low dose LUIS-I. (6) DVT prophylaxis: Chemical prophylaxis as per ortho while hospitalized. Will recommend BID ASA following discharge until follow-up with Ortho. (7) Discharge planning issues: Plan for discharge home with PT/OT and VNA. He will also require a Front Wheeled Walker as a part of his designated PT needs and rehab efforts. Home Meds and New Rx's Prescriptions: New pantoprazole 40 mg Tablet,Delayed Release (Dr/Ec) 40 mg PO DAILY@0730 Qty: 30 RF: 0 oxycodone 5 mg Tablet 5 mg PO Q4H PRN PRNQty: 10 RF: 0 aspirin 81 mg tablet,chewable 81 mg PO BID Qty: 60 RF: 0 Continued fluticasone propion-salmeterol [Advair Diskus] 250-50 mcg/dose blister with device 1 inh IH BID Qty: 3 RF: 3 atorvastatin 40 mg tablet 40 mg PO DAILY Qty: 90 RF: 3 lisinopril 5 mg tablet 5 mg PO DAILY Qty: 90 RF: 3 albuterol sulfate [ProAir HFA] 90 mcg/actuation HFA aerosol inhaler 1 - 2 puff Inhalation .Q4-6H PRN (Reason: shortness of breath or wheezing) Qty: 3 RF: 3 Discharge Instructions Stand Alone Forms: Nursing Discharge Form Referrals: Yanely Lobato NP [Primary Care Provider] - 01/22/19 11:30 am Juan Espinosa MD [ [facility] STAFF PHYSICIAN] - 01/23/19 10:45 am Activity:: As per PT Recommendations. Use Walker. Equipment/Supplies:: No Equipment Needed Diet:: As Tolerated Discharge Orders Discharge Orders: Discharge Order (Routine); Ordered 01/09/19 Ordered By: Fili Redman DS: Summary Status at Discharge Functional status at discharge: uses cane/walker Overall status at discharge: patient is back to baseline Mental Status: mental status grossly normal Speech and Movement: speech and movement normal Mood: congruent mood Affect: normal affect Exam Narrative Exam Narrative: General: Patient appears comfortable, AAOX3, NAD Neck: Supple CV: Regular, nontachycardic, S1S2, somewhat distant heart sounds. Pulmonary: Clear to auscultation bilaterally, no crackles, wheezing, or rhonchi. Prolonged expiratory phase. Abdomen: + Bowel Sounds, soft, nontender, nondistended Vascular: No lower extremity edema Psych: Normal mood and affect. Psych Mental Status: mental status grossly normal Speech and Movement: speech and movement normal Mood: congruent mood Affect: normal affect DS: Data Vitals/I&O Vitals and I&O: Vital Signs Temperature 35.6 C L 01/09/19 11:50 Temperature Source Tympanic 01/09/19 11:50 Pulse 96 H 01/09/19 11:50 Pulse Rhythm Regular 01/09/19 08:15 Respiratory Rate 17 01/09/19 11:50 Respiratory Effort Non-Labored 01/09/19 08:15 Respiratory Depth Normal 01/09/19 08:15 Respiratory Pattern Normal 01/09/19 08:15 Blood Pressure 122/73 01/09/19 11:50 Blood Pressure Mean 108 01/07/19 08:01 Blood Pressure Position Supine 01/07/19 07:01 Pulse Oximetry 92 L 01/09/19 11:50 Respiratory End-tidal CO2 23 01/07/19 16:10 Oxygen Delivery Method Room Air 01/09/19 11:50 Oxygen Flow Rate 0 01/09/19 11:50 Pain Level 0 01/09/19 11:50 Intake & Output 01/08/19 01/09/19 01/09/19 23:59 11:59 23:59 Intake Total 627 / 3327 Output Total 375 / 1025 300 / 300 Balance 252 / 2302 -290 / -290 Intake: IV 147 / 2247 Oral 480 / 1080 Output: Urine 375 / 1025 300 / 300 Other: Urine Color Yellow Pale Yellow Urine Appearance Clear Clear Urine Odor Normal Normal Comment mixed with stool in toilet Stool Size Moderate Stool Characteristics Soft Formed Voiding Methods Urinal Toilet Data Completed and Pending Completed studies during hospitalization [Text1]: Exam(s) 01/07 a RAD:XR hip RT complete & AP pelvis EXAM: XR HIP RT COMPLETE AP PELVIS INDICATION: pain s/p fall. COMPARISON: No exams were available for comparison TECHNIQUE: 2D digital imaging was performed. FINDINGS: Three views were obtained and show intertrochanteric fracture of the femur with moderate displacement. No additional fracture seen. -------- Exam(s) 01/07 a RAD:XR chest 1V in DI dept EXAM: XR CHEST 1V IN DI DEPT INDICATION: hip fracture. COMPARISON: CHEST 2 VIEWS PA,LAT from 03/30/2010 TECHNIQUE: 2D digital imaging was performed. FINDINGS: The heart is not enlarged. Lungs show evidence of COPD and scarring, no focal consolidation seen. No pleural effusion seen on this supine view. ------- Exam(s) 01/07 a RAD:XR hip RT complete & AP pelvis EXAM: XR HIP RT COMPLETE AP PELVIS INDICATION: Check reduction and internal fixation R hip in RR.. COMPARISON: XR HIP RT COMPLETE AP PELVIS from 01/07/2019 TECHNIQUE: 2D digital imaging was performed. FINDINGS: Two views were obtained. There is a gamma nail transfixing proximal femoral fracture fragments. Alignment appears nearly anatomic. 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 garcia Family History Mother No problems noted. Father Personal history of malignant neoplasm lymphoma 4ppd smoker Social History Smoking/Tobacco Use Status: Former Tobacco Use Alcohol Intake: current Alcohol Intake frequency: 0-2 drinks per day Drug use: Never Substance use type: does not use Adopted: No Caregiver/Support person: No Foster care: No Household members: spouse Number of Children: 10 Communication Needs: None Pets and animals: Yes Pets and animals: dog(s) Sexually active: No Current gender identity: male What type of physical activity do you participate in: walking and regular exercise Frequency: daily Seatbelt use: always Water heater temp set <120 deg: Yes Working smoke detector in home: Yes Fire extinguisher in home: Yes Carbon monox detector in home: Yes Firearms in home: Yes Do you feel safe at home: Yes Do you feel safe in your relationship?: Yes Additional Social history: , 5 adopted children and 5 children of his own. Remote history of tobacco use. 1-2 12 oz beers nightly. Denies illicit drug use.
--- NOTE | 2019-01-09 13:57 | W.PM.PROGNOT ---
Date of Service Date of service: 01/09/19 Time of Service: 13:57 Assessment and Plan Assessment and plan (1) Hip fracture: Status: Acute Assessment and plan: Assessment: He is ready for discharge home. I encouraged the patient to take the narcotic prescription he is given in case he needs it. If he does not feel he needs that he does not have to fill it. He may shower and get his jeronimo wet. Plan: Follow-up with me in 2 weeks. He can participate in activities as tolerated at home. Subjective Subjective Patient reports: feels better Interval history since last seen: Jairo says he has been discharged home by . He is not taking any p.o. pain meds at this time. He thinks he will be fine with just Tylenol. He does not think he needs to fill his discharge prescription for narcotic pills. Exam Narrative Exam Narrative: I remove his postop dressing today. Incisions are clean and dry. I cover them with light gauze 4 x 4's so the jeronimo do not catch on his pants. He is moving well and is fully independent at this time. Hemoglobin is 11.5 g today. Objective Objective Clinical Data: Abnormal lab results 01/09/19 Range/Units 07:30 RBC 3.80 L (4.50-6.00) m/cumm Hgb 11.5 L (13.5-17.5) g/dL Hct 34.8 L (40.0-50.0) % Vital Signs Temperature 35.6 C L 01/09/19 11:50 Temperature Source Tympanic 01/09/19 11:50 Pulse 96 H 01/09/19 11:50 Pulse Rhythm Regular 01/09/19 08:15 Respiratory Rate 17 01/09/19 11:50 Respiratory Effort Non-Labored 01/09/19 08:15 Respiratory Depth Normal 01/09/19 08:15 Respiratory Pattern Normal 01/09/19 08:15 Blood Pressure 122/73 01/09/19 11:50 Blood Pressure Mean 108 01/07/19 08:01 Blood Pressure Position Supine 01/07/19 07:01 Pulse Oximetry 92 L 01/09/19 11:50 Respiratory End-tidal CO2 23 01/07/19 16:10 Oxygen Delivery Method Room Air 01/09/19 11:50 Oxygen Flow Rate 0 01/09/19 11:50 Pain Level 0 01/09/19 11:50 Intake & Output 01/08/19 01/09/19 01/09/19 23:59 11:59 23:59 Intake Total 627 / 3327 370 / 610 240 / 610 Output Total 375 / 1025 300 / 300 Balance 252 / 2302 70 / 310 240 / 310 Intake: IV 147 / 2247 Oral 480 / 1080 360 / 600 240 / 600 Output: Urine 375 / 1025 300 / 300 Other: Urine Color Yellow Pale Yellow Urine Appearance Clear Clear Urine Odor Normal Normal Comment mixed with stool in toilet Stool Size Moderate Stool Characteristics Soft Formed Voiding Methods Urinal Toilet Laboratory Results WBC 10.79 k/cumm (4.4-10.8) 01/09/19 07:30 RBC 3.80 m/cumm (4.50-6.00) L 01/09/19 07:30 Hgb 11.5 g/dL (13.5-17.5) L 01/09/19 07:30 Hct 34.8 % (40.0-50.0) L 01/09/19 07:30 MCV 91.6 fL (80-95) 01/09/19 07:30 MCH 30.3 pg (27.0-33.0) 01/09/19 07:30 MCHC 33.0 g/dL (32.0-36.0) 01/09/19 07:30 RDW 12.8 % (11.8-14.1) 01/09/19 07:30 Plt Count 210 x1000/uL (130-400) 01/09/19 07:30 MPV 9.0 fL (8.0-11.0) 01/09/19 07:30 Immature Gran % 0.2 01/08/19 07:16 Neutrophils % 80.1 01/08/19 07:16 Lymphocytes % 13.1 01/08/19 07:16 Monocytes % 6.4 01/08/19 07:16 Eosinophils % 0.1 01/08/19 07:16 Basophils % 0.1 01/08/19 07:16 Absolute Neutrophils 9.98 k/cumm (1.2-6.7) H 01/08/19 07:16 Absolute Lymphocytes 1.63 k/cumm (1.2-3.4) 01/08/19 07:16 Absolute Monocytes 0.80 k/cumm (0.11-0.7) H 01/08/19 07:16 Absolute Eosinophils 0.01 k/cumm (0.0-0.7) 01/08/19 07:16 Absolute Basophils 0.01 k/cumm (0.0-0.2) 01/08/19 07:16 PT 10.1 sec (9.3-11.0) 01/07/19 07:46 INR 1.0 (0.9-1.1) 01/07/19 07:46 APTT 28.1 sec (21.0-31.4) 01/07/19 07:46 Sodium 134 mmol/L (136-145) L 01/08/19 07:16 Potassium 4.8 mmol/L (3.5-5.1) 01/08/19 07:16 Chloride 101 mmol/L (98-107) 01/08/19 07:16 Carbon Dioxide 24.6 mmol/L (21.0-32.0) 01/08/19 07:16 Anion Gap 8.4 mmol/L (3-11) 01/08/19 07:16 BUN 10 mg/dL (7-18) 01/08/19 07:16 Creatinine 0.63 mg/dL (0.70-1.30) L 01/08/19 07:16 Estimated GFR/1.73 m2 >= 60.00 (mL/min/1.73m2) 01/08/19 07:16 Glucose 99 mg/dL (70-100) 01/08/19 07:16 Calcium 8.2 mg/dL (8.5-10.1) L 01/08/19 07:16 Magnesium 1.7 mg/dL (1.8-2.4) L 01/08/19 07:16 Total Bilirubin 0.6 mg/dL (0.2-1.0) 01/07/19 07:46 AST 23 U/L (15-37) 01/07/19 07:46 ALT 27 U/L (16-63) 01/07/19 07:46 Alkaline Phosphatase 75 U/L (46-116) 01/07/19 07:46 Troponin I < 0.05 ng/mL (0.00-0.06) 01/07/19 07:46 Total Protein 7.4 g/dL (6.4-8.2) 01/07/19 07:46 Albumin 3.2 g/dL (3.4-5.0) L 01/07/19 07:46 Patient ABO/Rh O Positive 01/07/19 07:46 Antibody Screen Negative 01/07/19 07:46
--- NOTE | 2019-01-09 14:09 | PDOC.HHF2F ---
Home Health Certification Home Health Certification: 1. Encounter Date and Reason I certify that JOSH RIVAS was seen by Fili Redman on 01/09/19 and that I had a [id number] encounter with this patient that meets the physician face to face encounter requirements. 2. Clinical Findings Supporting Skilled Need and Homebound Status I certify that home health services are medically necessary, include either intermittent mcfp and/or physical/speech therapy, and that this patient is homebound in that absences from the home require considerable and taxing effort and are infrequent or of short duration, or are attributable to the need to receive medical care. [X] (a) Attached documentation from encounter provides clinical findings supporting skilled need and homebound status (including what assistance patient requires to leave the home). The encounter with the patient was in whole, or in part, for the following medical condition, which is the primary reason for home health care: HIP FRACTURE Correction: Wound care on RUE abrasion and right hip post-op. New medication reconcilliation following discharge. Physical Therapy: S/p ORIF Right Hip. Utilizing FWW. Speech Therapy: Homebound: 3. Certification and Authentication I certify that I composed the above information based on my clinical judgement relating to this patient's medical condition and, if applicable, clinical findings communicated to me by the NPP or inpatient physician who performed the Home Health Referral. All further orders will be obtained through Yanely Lobato (Community Based Physician - PCP)
--- NOTE | 2019-01-09 16:47 | CMDISCH_ITS ---
- If Service Date Differs Date of service: 01/09/19 Time of Service: 16:47 LACE Index Scoring Tool - Questions: Length of Stay (in days): 3 Acuity (Admit via E.D.?): Yes E.D. Visits: 1 - Answers: Total Score: 7 Risk of Readmission: Low Risk Care Management Discharge Reason for Hospitalization: Hip Fracture Discharge Plan: Jairo will return home with new orders for HH VNA, PT/OT. CM called [facility] to inform them of the new referral. CM coordinated a FWW through [facility]. His will drive him home via private vehicle. He will have follow up appointments as recommended. Patient/Family Education Needs: Review of discharge instructions regarding activity levels and medication, discussion of self care needs including Ask Me Three. Services Needed at Discharge: DME Agency, Home Health Care Services, Physical Therapy
--- NOTE | 2019-01-10 11:19 | PT.INDS ---
Date of service: 01/10/19 Time of Service: 11:19 PT Notes Inpatient Physical Therapy Discharge Summary Dates: 01/10/2019 Dates of Service: 01/08/2019 through 01/09/2019 Referring Doctor: Fili Redman MD PT Orders: PT CONSULT: Routine Precautions: Fall. Standard. WBAT R Patient Profile/Admitting Diagnosis: Patient is a 78-year-old male s/p R Hip ORIF on POD 2 following a fall on 01/07/2019 involving his 2-month old Labrador who pulled on the leash and caused him to land on the road with his hip first. 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 garcia Social History/Home Situation: Patient lives in a one-story home with his with no steps to enter. 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 Equipment Owned/DME: None. Subjective: Patient does not report pain at rest. He says he is anxious to get up because he has been in bed since his surgery. He denies headache, lightheadedness, and dizziness. He is agreeable to PT evaluation. Objective: General Observation: TEDS on bilateral legs. Mental Status: Alert and oriented x 4 Pain: 0/10 at rest. Mild discomfort with ambulation. ROM: Right Lower Extremity: Hip flexion 90-100 degrees. Hip abduction WFL. Knee flexion WFL. Ankle dorsiflexion WFL. Ankle plantarflexion WFL. Left Lower Extremity: Hip flexion 90 degrees. Hip abduction WFL. Knee flexion WFL. Ankle dorsiflexion WFL. Ankle plantarflexion WFL. Strength: Right Lower Extremity: Hip flexors 3-/5. Knee flexors 4/5. Knee extensors 3+/5. Ankle dorsiflexors 3+/5. Ankle plantarflexors 4/5. Left Lower Extremity:Hip flexors 3-/5. Knee flexors 2+/5. Knee extensors 3-/5. Ankle dorsiflexors 3+/5. Ankle plantarflexors 4/5. Bed Mobility/Transfers: Rolling supervision Supine to sit supervision Sit to supine supervision Sit to stand supervision Stand to sit supervision Bed to chair supervision Chair to bed supervision Gait: Patient exhibited a step-to gait pattern using a FWW, CGA and wheelchair follow. He showed decreased step height, length, conrad, and overall gait speed. He ambulated 80?. Patient denies headache, chest pain, and dizziness. Balance: Static Sitting: Normal Dynamic Sitting: Good Static Standing: Fair Dynamic Standing: Fair Assessment: Patient is a 78 year old male s/p R hip fracture ORIF POD 2. He was able to ambulate 20? with FWW and wheelchair follow. He has deficits in strength in B LEs. He lives in [facility] with his and has a good support system. His prognosis is good. He would benefit from PT to facilitate a smooth transition to home. Patient continues to present with clinical signs and symptoms consistent with current/admitting diagnoses that have resulted to mobility limitations, gait instability, generalized weakness, and impairment of motor control as demonstrated by the following impairment level findings: 1. Decreased strength to B LE major muscle groups 2. Impaired sitting/standing balance 3. Impaired activity tolerance 4. Limitation of joint range of motion in B hip flexion Impairments are contributing to the following functional limitations: 1. Dependent bed mobility skills 2. Increased dependence with transfers 3. Inability to safely ambulate without assistive device and physical assistance 4. Increase completion time for mobility ADL performance 5. Increased fall risk 6. Inability to negotiate steps alone safely Goals: Goals X1 week 1. Supine-Sit independent NOT MET 2. Sit-Supine independent NOT MET 3. Sit-Stand independent NOT MET 4. Stand-Sit independent NOT MET 5. Bed-Chair independent NOT MET 6. Chair-Bed independent NOT MET 7. Independent gait on level surface with use of least restrictive device for at least 300 feet without report of pain nor dyspnea NOT MET 8. Independent stair negotiation while holding onto bilateral rails for at least 5 steps without report of pain nor dyspnea NOT MET 9. Independent with home exercise program NOT MET 10. Good static and dynamic standing balance/tolerance NOT MET DISCHARGE RECOMMENDATIONS: Patient will be discharged to home under the care of his once all of the above goals are met and he is medically stable. Patient will benefit from use of a front-wheeled walker upon discharge from this facility to maximize mobility independence and reduce fall risk at home. Patient will benefit from home health PT services in order to progress mobility level using least restrictive assistive ambulatory device, assess home safety, identify additional equipment needs, and establish a functional maintenance program that will increase ability of patient to remain at home. TREATMENT CODE/TIME: ME. Thank you very much for this referral. Dianne Cowan PT, DPT, CLT [facility]
== END 2019-01-09 15:14 | disposition home health service (06) | DRG 482 ==
LOC: ER 08:21 → MS 09:06
PROVIDERS: Orthopaedic Surgery; Admitting Provider Internal Medicine; Emergency Provider Emergency Medicine; PCP Nurse Practitioner Family; Visit Provider Internal Medicine
PROC: 0QS606Z Reposition Right Upper Femur with Intramedullary Internal Fixation Device, Open Approach (ICD-10-PCS; CPT 27245; principal; 2019-01-07 13:10)
DX: S72.141A Displaced intertrochanteric fracture of right femur, initial encounter for closed fracture (principal); G89.18 Other acute postprocedural pain; W54.1XXA Struck by dog, initial encounter; W18.39XA Other fall on same level, initial encounter; I45.10 Unspecified right bundle-branch block; I27.20 Pulmonary hypertension, unspecified; E78.5 Hyperlipidemia, unspecified; J45.40 Moderate persistent asthma, uncomplicated; I10 Essential (primary) hypertension; Z87.891 Personal history of nicotine dependence; Z23 Encounter for immunization
CPT/HCPCS: 27245; 36415; 80048; 80053; 85027; 86850; 86900; 86901; 94640; 97110; 97162; 97530; 99222; 99232; 99239; 99285; NC; 71045; 73501; 73502; 83735; 84484; 85025; 85610; 85730; 99284; J0690; J1650; J1885

== ENCOUNTER 2019-01-23 11:19 | Outpatient (CLI) | payer MEDICARE, OTHER, SELFPAY ==
--- NOTE | 2019-01-23 11:11 | DI.RAD_ITS ---
EXAM: XR HIP RT COMPLETE AP PELVIS INDICATION: f/u. COMPARISON: XR HIP RT COMPLETE AP PELVIS from 01/07/2019 XR HIP RT COMPLETE AP PELVIS from 01/07/2019 TECHNIQUE: 2D digital imaging was performed. FINDINGS: There is again seen an intramedullary brandi and nail transfixing the intertrochanteric fracture of the right femur. There has been no change in alignment of the orthopaedic hardware or fracture component s since the prior examination. No new fracture or dislocation is identified. There is soft tissue s welling laterally. Atherosclerosis. IMPRESSION: Stable internally fixated intertrochanteric fracture of the right hip. Soft tissue swelling of the r ight hip laterally.
== END 2019-01-23 11:39 ==
PROVIDERS: PCP Nurse Practitioner Family; Referring Provider Nurse Practitioner Family; Visit Provider Orthopaedic Surgery
DX: S72.141D Displaced intertrochanteric fracture of right femur, subsequent encounter for closed fracture with routine healing (principal); M79.89 Other specified soft tissue disorders; I10 Essential (primary) hypertension; X58.XXXD Exposure to other specified factors, subsequent encounter
CPT/HCPCS: 73502

== ENCOUNTER 2019-03-07 13:38 | Outpatient (CLI) | payer MEDICARE, OTHER, SELFPAY ==
--- NOTE | 2019-03-07 09:49 | DI.RAD_ITS ---
EXAM: XR HIP RT COMPLETE AP PELVIS INDICATION: f/u fracture. COMPARISON: No exams were available for comparison TECHNIQUE: 2D digital imaging was performed. FINDINGS: There is again seen an intramedullary brandi transfixing the proximal right femoral fracture. No change in the orthopedic hardware or fracture components is noted.
== END 2019-03-07 13:58 ==
PROVIDERS: PCP Nurse Practitioner Family; Referring Provider Nurse Practitioner Family; Visit Provider Orthopaedic Surgery
DX: S72.141D Displaced intertrochanteric fracture of right femur, subsequent encounter for closed fracture with routine healing (principal); X58.XXXD Exposure to other specified factors, subsequent encounter; I10 Essential (primary) hypertension
CPT/HCPCS: 73502

== ENCOUNTER 2019-04-18 09:42 | Outpatient (CLI) | payer MEDICARE, OTHER, SELFPAY ==
--- NOTE | 2019-04-18 09:14 | DI.RAD_ITS ---
EXAM: XR HIP RT COMPLETE AP PELVIS INDICATION: f/u. COMPARISON: XR HIP RT COMPLETE AP PELVIS from 01/07/2019 XR HIP RT COMPLETE AP PELVIS from 01/07/2019 XR HIP RT COMPLETE AP PELVIS from 03/07/2019 TECHNIQUE: 2D digital imaging was performed. FINDINGS: The proximal aspect of an intramedullary brandi and screw are seen within the proximal right femur. The orthopedic hardware appears stable. No change in alignment of the proximal femoral fracture is note d. The fracture appears to be healing well. The soft tissues are unremarkable.
== END 2019-04-18 10:02 ==
PROVIDERS: PCP Nurse Practitioner Family; Referring Provider Nurse Practitioner Family; Visit Provider Orthopaedic Surgery
DX: S72.141D Displaced intertrochanteric fracture of right femur, subsequent encounter for closed fracture with routine healing (principal); I10 Essential (primary) hypertension; X58.XXXD Exposure to other specified factors, subsequent encounter
CPT/HCPCS: 99213; 73502

== ENCOUNTER 2019-12-05 02:24 | Outpatient (CLI) | payer MEDICARE, OTHER, SELFPAY ==
[2019-12-05 08:27] LABS: Anion Gap 2.8 mmol/L (3-11); BUN 9 mg/dL (7-18); CO2 32.2 mmol/L (21.0-32.0); Calcium 9.4 mg/dL (8.5-10.1); Calculated LDL 73 mg/dL (<100); Chloride 96 mmol/L (98-107); Cholesterol 155 mg/dL (<200); Glucose 95 mg/dL (74-106); HDL Cholesterol 72 mg/dL (40-60); Potassium 4.7 mmol/L (3.5-5.1); Sodium 131 mmol/L (136-145); Triglyceride 50 mg/dL (<150)
== END 2019-12-05 02:44 ==
PROVIDERS: PCP Nurse Practitioner Family; Visit Provider Nurse Practitioner Family
DX: E78.5 Hyperlipidemia, unspecified (principal); I10 Essential (primary) hypertension
CPT/HCPCS: 36415; 80048; 80061

== ENCOUNTER 2020-01-07 00:27 | Outpatient (CLI) | payer MEDICARE, OTHER, SELFPAY ==
--- NOTE | 2020-01-07 13:48 | DI.US_ITS ---
APPROVED REPORT EXAM: Comprehensive 2D, Doppler, and color-flow Echocardiogram Patient Location: Out-Patient [facility] Director: Maria Dolores Rodriguez RDCS (AE) Indications: New RBBB, HTN Other Information Study Quality: Good Conclusion Left Ventricle : The left ventricle is normal size. The left ventricular systolic function is normal. The left ventricular ejection fraction is within the normal range. There is normal left ventricular wall thickness. There is normal LV segmental wall motion. The left ventricular diastolic function is normal. LVEF is 55%. Right Ventricle : The right ventricle is normal size. The right ventricular systolic function is norm al. The RVSP is 24.7mmHg. Atria : The left atrium size is normal. The right atrium size is normal. Valves: There are no hemodynamically significant valvular lesions. Great Vessels : The ascending aorta is normal in size. Aortic arch is not well visualized. IVC is nor mal in size and collapses >50% with inspiration. Please see remainder of study for further details. Wall motion Left Ventricle The left ventricle is normal size. The left ventricular systolic function is normal. The left ventric ular ejection fraction is within the normal range. There is normal left ventricular wall thickness. T here is normal LV segmental wall motion. The left ventricular diastolic function is normal. There is no ventricular septal defect visualized. LVEF is 55%. Right Ventricle The right ventricle is normal size. The right ventricular systolic function is normal. The RVSP is 24 .7mmHg. Atria The left atrium size is normal. The right atrium size is normal. The interatrial septum is intact wit h no evidence for an atrial septal defect. Aortic Valve The Aortic valve is sclerotic. Aortic valve is trileaflet. There is no aortic valvular stenosis. No a ortic regurgitation is present. Mitral Valve Mild mitral annular calcification. No evidence of mitral valve stenosis. Trace mitral regurgitation. Tricuspid Valve The tricuspid valve is normal in structure. There is no tricuspid valve stenosis. Trace tricuspid reg urgitation. Pulmonic Valve The pulmonary valve is normal in structure. There is no pulmonic valvular stenosis. Trace pulmonic re gurgitation. Great Vessels The aortic root is normal in size. The ascending aorta is normal in size. Aortic arch is not well vis ualized. IVC is normal in size and collapses >50% with inspiration. Pericardium There is no pericardial effusion. 2D Dimensions IVSD d PLAX 0.96 cm M: 0.6-1.2 LV Vol A2C d MOD 89.4 mL LVPW d PLAX 0.97 cm M: 0.6 - 1.2 LV Vol A4C d MOD 95.2 mL LVID d PLAX 4.42 cm M: 4.2 - 5.8 LA vol/ BSA A2C s A-L 24.1 mL/m2 LVDs 3.05 cm M: 2.5 - 4.0 LA vol/ BSA A4C s A-L 20.6 mL/m2 Ao Root d 3.11 cm M: 3.1 - 3.7 LA Vol/ BSA Biplane s A-L 22.6 mL/m2 RA Area A4C 14.36 cm2 LA Area A4C s MOD 14.17 cm2 RA Vol/ BSA A4C s A-L 22.7 mL/m2 LA Area A2C s MOD 15.07 cm2 Ao Asc Diam d 3.49 cm M: 2.6 - 3.4 LV EF A4C MOD 55.7 % LV EF Teichholz 58.2 % LV EF A2C MOD 54.7 % LVEF (Chin's) 55.30 % M: 52 - 72 LV EF Biplane MOD 55.3 % LV Volume 75.01 mL M: 62 - 150 SV 52.26 mL LV Volume Index 44.12 mL/m2 M: 34 - 74 SV Index 30.70 mL/m2 LV Vol Biplane MOD 94.5 mL FS 30.50 % M-Mode TAPSE 2.26 cm (M/F) >1.7 LV Diastology MV E' medial 0.075 (>0.07 m/s) E/A Ratio 1.1 LV E/e MED 8.85 (<14) MV E Vmax 0.67 (0.4-1.3 m/s) MV E' lateral 0.126 (>0.1 m/s) MV A Vmax 0.60 (0.4-1.3 m/s) LV E/e LAT 5.30 (<14) MV E/A Ratio 1.04 MV E/E' medial 8.88 MV E/E' lateral 5.30 Aortic Valve LVOT Area 3.70 cm2 AoV Area Vmax 2.83 cm2 LVOT Vmax 0.81 m/s AoV Area/ BSA (Vmax) 1.66 cm2/m2 LVOT Mean Surinder. 0.53 m/s LIEN Mean Surinder. 2.46 cm2 LVOT Peak Grad 2.6 mmHg LIEN Mean Surinder. Index 1.44 cm2/m2 LVOT Mean Grad 1.3 mmHg LVOT VTI 0.176 m LVOT Diam s 2.15 cm AoV Vmax 1.06 m/s Velocity Ratio 0.76 AoV Mean Surinder. 0.80 m/s AoV Peak Grad 4.5 mmHg LVOT SV 65.09 mL AoV Mean Grad 2.7 mmHg AoV VTI 0.221 m AoV Area VTI 2.94 cm2 AoV Area/ BSA (VTI) 1.73 cm/m2 Mitral Valve MV DT 160 (160-240 msec) MV PHT 46 msec MV Area PHT 4.73 cm2 Pulmonary Valve PV Vmax 0.94 (0.5-1.5 m/s) RVOT Peak Gr. 1.33 mmHg PV Peak Grad 3.5 mmHg RVOT Mean Gr. 0.60 mmHg PV Mean Grad 1.6 mmHg RVOT VTI 0.101 m PV VTI 0.165 m RVOT Vmax 0.58 m/s Tricuspid Valve TR Peak Grad 21.6 mmHg TR Vmax 2.33 m/s RA Pressure 3.00 mmHg RVSP (TR) 24.7 mmHg
== END 2020-01-07 00:47 ==
PROVIDERS: PCP Nurse Practitioner Family; Visit Provider Nurse Practitioner Family
DX: I10 Essential (primary) hypertension (principal); I45.10 Unspecified right bundle-branch block
CPT/HCPCS: 93306

== ENCOUNTER 2020-10-17 04:44 | Outpatient (CLI) | payer MEDICARE, SELFPAY ==
--- NOTE | 2020-10-17 08:58 | DI.RAD_ITS ---
Exam(s) XR CHEST 2V PA LATERAL EXAM: XR CHEST 2V PA LATERAL CLINICAL HISTORY: worsening of chronic SOB,? effusion, infxn, mass,R06.02,J45.40,MILD ASTHMA, TECHNIQUE: 2D digital imaging was performed. COMPARISON: CR CHEST 2 VIEWS PA,LAT from 03/30/2010 CR CHEST 2 VIEWS PA,LAT from 03/30/2010 CR,XR XR CHEST 1V IN DI DEPT from 01/07/2019 CR,XR XR CHEST 1V IN DI DEPT from 01/07/2019 FINDINGS: MEDIASTINUM: Normal. HEART: Normal. PULMONARY VASCULATURE: Normal. LUNGS: Scarring greatest in the upper lobes. Chronic fibrotic changes and emphysematous changes. PLEURAL SPACE: Mild blunting at the costophrenic angles could represent chronic pleural thickening . No pneumothorax. BONE:Unremarkable for age. IMPRESSION: Scarring greatest in the upper lobes. No evidence of mass or consolidation. DATA REPOSITORY: RADIATION DOSE DELIVERED:
== END 2020-10-17 05:04 ==
PROVIDERS: PCP Nurse Practitioner Family; Visit Provider Nurse Practitioner Family
DX: J98.4 Other disorders of lung (principal); J44.9 Chronic obstructive pulmonary disease, unspecified
CPT/HCPCS: 71046

== ENCOUNTER 2020-11-25 03:57 | Outpatient (CLI) | payer MEDICARE, SELFPAY ==
[2020-11-25] MEDS: Albuterol HFA 18 GM 200 PUFF INH IH (11:18)
[2020-11-25] MEDS: Inhaler, Assist Device 1 EACH MC (11:18)
--- NOTE | 2020-11-25 13:01 | W.PFT ---
Date of service: 11/25/20 Time of Service: 10:02 Pulmonary Function Test Result Interpretation Spirometry: There is severe airflow limitation. There is no significant bronchodilator response. There is a decreased FVC. Lung Volumes: There is evidence of air trapping. Diffusion Capacity: The diffusion is reduced. Airway Pressure: Airways resistance is increased. Impression Severe airflow limitation with signs of air trapping and a reduced diffusion. Reduced FVC seen in spirometry is likely due to severe airflow limitation. 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 Note: When compared to spirometry completed 05/15/2008, the FEV1 and FVC are both significantly reduced. Clinical Correlation therefore is recommended.
== END 2020-11-25 03:58 | disposition home or self-care (01) ==
PROVIDERS: PCP Nurse Practitioner Family; Visit Provider Nurse Practitioner Family
DX: J45.909 Unspecified asthma, uncomplicated (principal)
CPT/HCPCS: 94060; 94726; 94729

== ENCOUNTER 2020-12-16 12:46 | Outpatient (REF) | payer MEDICARE, SELFPAY ==
[2020-12-16 12:37] LABS: Abs Immature Grans 0.04 10^3/uL (0.0-0.06); Absolute Basophil Count 0.02 10^3/uL (0.0-0.2); Absolute Eosinophil Count 0.18 10^3/uL (0.0-0.7); Absolute Lymphocyte Count 2.17 10^3/uL (1.2-3.4); Absolute Monocyte Count 0.64 10^3/uL (0.1-0.8); Absolute Neutrophil Count 6.43 10^3/uL (1.2-6.7); Basophils % 0.2; Eosinophils % 1.9; HCT 47.5 % (40.0-50.0); HGB 15.7 g/dL (13.5-17.5); Immature Grans % 0.4; Lymphocytes % 22.9; MCH 30.1 pg (27.0-33.0); MCHC 33.1 % (32.0-36.0); MCV 91.2 fL (80-95); MPV 9.5 fL (8.0-11.0); Monocytes % 6.8; Neutrophils % 67.8; Nucleated RBC 0 %; Platelet Count 301 10^3/uL (130-400); RBC 5.21 10^6/uL (4.36-5.78); RDW 12.9 % (11.8-14.1); RDW-SD 43.2 fL; WBC 9.48 10^3/uL (4.4-10.8)
[2020-12-17 08:07] LABS: IgE 1687 IU/mL (<158)
== END 2020-12-16 12:47 | disposition home or self-care (01) ==
LOC: LBN 12:46
PROVIDERS: PCP Nurse Practitioner Family; Referring Provider Student in an Organized Health Care Education/Training Program; Visit Provider Student in an Organized Health Care Education/Training Program
DX: J44.9 Chronic obstructive pulmonary disease, unspecified (principal)
CPT/HCPCS: 82785; 85025

== ENCOUNTER 2020-12-19 12:16 | Outpatient (REF) | payer MEDICARE, SELFPAY ==
[2020-12-22 19:09] LABS: Aspergillus Fumigatus IgE 9.12 kU/L; Aspergillus Niger, IgE <0.35 kU/L
== END 2020-12-19 12:17 | disposition home or self-care (01) ==
LOC: LBN 12:16
PROVIDERS: PCP Nurse Practitioner Family; Visit Provider Student in an Organized Health Care Education/Training Program
DX: J44.9 Chronic obstructive pulmonary disease, unspecified (principal)
CPT/HCPCS: 86003

== ENCOUNTER 2020-12-26 02:40 | Outpatient (CLI) | payer MEDICARE, SELFPAY ==
--- NOTE | 2020-12-26 07:00 | DI.CT_ITS ---
Exam(s) CT CHEST WO EXAM: CT CHEST WO CLINICAL HISTORY: Concern for ABPA - IgE 1700,ASTHMA,COPD,J44.9. TECHNIQUE: Imaging protocol: Axial computed tomography images were obtained and coronal and sagittal reformatted images were created and reviewed. COMPARISON: No exams were available for comparison FINDINGS: The examination is limited due to patient motion artifact. Tracheobronchial tree: Patent where visualized. No evidence of mucoid impaction. Pulmonary parenchyma: No focal consolidations. No pulmonary nodules. Hyperlucent changes are seen w ithin the lungs particularly the lower lobes. There is loss of volume of the right middle lobe with bronchiectasis. Mediastinum and Rama: No dominant adenopathy or fluid collection. Pleura: No effusion or pneumothorax. Heart: The heart is not dilated. Coronary artery calcifications. No pericardial effusion. Aorta: Thoracic aorta non-dilated. Atherosclerosis. Upper abdomen: Calcifications are seen in the renal pelves bilaterally which may represent nonobstru cting stones versus vascular calcifications. Lymph nodes: Within normal limits. Soft tissues: Unremarkable. Bones:Within normal limits for the patient's age. IMPRESSION: 1. No acute pulmonary alveolar infiltrates, mucoid impaction or pulmonary nodules are seen. 2. Volume loss and bronchiectasis in the right middle lobe. RADIATION DOSE DELIVERED: 374.97mGy.cm Total DLP 374.97mGy.cm Total DLP DATA REPOSITORY: All CT scans at this facility are submitted to the National Radiology Data Registry (NRDR) Dose Index Registry (DIR) with the [employer] (A[employer]). RADIATION OPTIMIZATION: All CT scans at this facility use at least one of these dose optimization te chniques: automated exposure control; mA and/or kV adjustment per patient size (includes targeted exa ms where dose is matched to clinical indication); or iterative reconstruction.
== END 2020-12-26 03:00 ==
PROVIDERS: PCP Nurse Practitioner Family; Visit Provider Student in an Organized Health Care Education/Training Program
DX: J47.9 Bronchiectasis, uncomplicated (principal)
CPT/HCPCS: 71250

== ENCOUNTER 2021-01-19 12:44 | Outpatient (REF) | payer MEDICARE, SELFPAY ==
[2021-01-21 12:56] LABS: IgE 1203 IU/mL (<158)
== END 2021-01-19 12:45 | disposition home or self-care (01) ==
LOC: LBN 12:44
PROVIDERS: PCP Nurse Practitioner Family; Visit Provider Student in an Organized Health Care Education/Training Program
DX: B44.81 Allergic bronchopulmonary aspergillosis (principal)
CPT/HCPCS: 82785

== ENCOUNTER 2021-03-17 11:56 | Outpatient (CLI) | payer MEDICARE, SELFPAY | END 2021-03-17 11:57 | disposition home or self-care (01) | LOC: RT 12:01 | PROVIDERS: PCP Nurse Practitioner Family; Visit Provider Student in an Organized Health Care Education/Training Program | DX: B44.81 Allergic bronchopulmonary aspergillosis (principal) | CPT/HCPCS: 94618 ==

== ENCOUNTER 2021-03-17 17:10 | Outpatient (REF) | payer MEDICARE, SELFPAY ==
[2021-03-17 15:27] LABS: Abs Immature Grans 0.04 10^3/uL (0.0-0.06); Absolute Eosinophil Count 0.01 10^3/uL (0.0-0.7); Absolute Lymphocyte Count 1.12 10^3/uL (1.2-3.4); Absolute Monocyte Count 0.32 10^3/uL (0.1-0.8); Absolute Neutrophil Count 11.18 10^3/uL (1.2-6.7); Basophils % 0.2; Eosinophils % 0.1; HCT 46.6 % (40.0-50.0); Immature Grans % 0.3; Lymphocytes % 8.8; MCH 30.8 pg (27.0-33.0); MCHC 32.2 % (32.0-36.0); MCV 95.7 fL (80-95); MPV 9.7 fL (8.0-11.0); Monocytes % 2.5; Neutrophils % 88.1; Nucleated RBC 0 %; Platelet Count 255 10^3/uL (130-400); RBC 4.87 10^6/uL (4.36-5.78); RDW 13.9 % (11.8-14.1); RDW-SD 48.7 fL; WBC 12.69 10^3/uL (4.4-10.8)
[2021-03-17 15:28] LABS: Absolute Basophil Count 0.03 10^3/uL (0.0-0.2)
[2021-03-17 16:32] LABS: ALT 27 U/L (16-63); AST 20 U/L (15-37); Albumin 3.3 g/dL (3.4-5.0); Alkaline Phosphatase 88 U/L (46-116); Anion Gap 5.8 mmol/L (3-11); BUN 10 mg/dL (7-18); Bilirubin, Total 0.8 mg/dL (0.2-1.0); CO2 29.2 mmol/L (21.0-32.0); CREATININE 0.7 mg/dL (0.70-1.30); Calcium 8.7 mg/dL (8.5-10.1); Chloride 102 mmol/L (98-107); Glucose 140 mg/dL (74-106); Potassium 4.5 mmol/L (3.5-5.1); Sodium 137 mmol/L (136-145); Total Protein 6.9 g/dL (6.4-8.2)
[2021-03-18 09:36] LABS: IgE 1093 IU/mL (<158)
== END 2021-03-17 17:11 | disposition home or self-care (01) ==
LOC: LBN 17:10
PROVIDERS: PCP Nurse Practitioner Family; Visit Provider Student in an Organized Health Care Education/Training Program
DX: B44.81 Allergic bronchopulmonary aspergillosis (principal)
CPT/HCPCS: 80053; 82785; 85025

== ENCOUNTER 2021-03-25 15:03 | Outpatient (REF) | payer MEDICARE, SELFPAY ==
[2021-03-25 11:08] LABS: ALT 33 U/L (16-63); AST 38 U/L (15-37); Albumin 3.5 g/dL (3.4-5.0); Alkaline Phosphatase 80 U/L (46-116); Anion Gap 7.4 mmol/L (3-11); BUN 9 mg/dL (7-18); Bilirubin, Total 0.5 mg/dL (0.2-1.0); CO2 29.6 mmol/L (21.0-32.0); CREATININE 0.8 mg/dL (0.70-1.30); Calcium 9.2 mg/dL (8.5-10.1); Chloride 99 mmol/L (98-107); Glucose 109 mg/dL (74-106); Potassium 4.5 mmol/L (3.5-5.1); Sodium 136 mmol/L (136-145); Total Protein 7.4 g/dL (6.4-8.2)
[2021-03-27 07:14] LABS: Voriconazole, S 8.3 mcg/mL (1.0 - 5.5)
== END 2021-03-25 15:04 | disposition home or self-care (01) ==
LOC: LBN 15:03
PROVIDERS: PCP Nurse Practitioner Family; Visit Provider Student in an Organized Health Care Education/Training Program
DX: B44.81 Allergic bronchopulmonary aspergillosis (principal)
CPT/HCPCS: 80053; 80299

== ENCOUNTER 2021-06-22 11:08 | Outpatient (REF) | payer MEDICARE, SELFPAY ==
[2021-06-24 09:48] LABS: IgE 883 IU/mL (<158)
== END 2021-06-22 11:09 | disposition home or self-care (01) ==
LOC: LBN 11:08
PROVIDERS: PCP Nurse Practitioner Family; Visit Provider Student in an Organized Health Care Education/Training Program
DX: B44.81 Allergic bronchopulmonary aspergillosis (principal)
CPT/HCPCS: 82785

== ENCOUNTER 2021-10-05 16:26 | Outpatient (REF) | payer MEDICARE, SELFPAY ==
[2021-10-07 08:58] LABS: IgE 1208 IU/mL (<158)
== END 2021-10-05 16:27 | disposition home or self-care (01) ==
LOC: LBN 16:26
PROVIDERS: PCP Nurse Practitioner Family; Visit Provider Student in an Organized Health Care Education/Training Program
DX: B44.81 Allergic bronchopulmonary aspergillosis (principal)
CPT/HCPCS: 82785

== ENCOUNTER 2021-10-06 15:56 | Outpatient (REF) | payer MEDICARE, SELFPAY | END 2021-10-06 15:57 | disposition home or self-care (01) | LOC: LBN 15:56 | PROVIDERS: PCP Nurse Practitioner Family; Visit Provider Student in an Organized Health Care Education/Training Program | DX: J44.9 Chronic obstructive pulmonary disease, unspecified (principal); B44.81 Allergic bronchopulmonary aspergillosis; J98.4 Other disorders of lung; R09.3 Abnormal sputum | CPT/HCPCS: 87077; 87070; 87205 ==

== ENCOUNTER 2021-10-19 07:54 | Day surgery (SDC) | payer MEDICARE, SELFPAY ==
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
[2021-10-19] MEDS: Tropicam./Phenyleph. (1/2.5%) 5 ML BTL OS ×3 (08:38→09:04)
[2021-10-19 08:49] VITALS: BMI 22.1
[2021-10-19 08:57] VITALS: BP 153/78; PULSE 85; RESP 20; TEMP 36; O2SAT 88
[2021-10-19] MEDS: Tetracaine 0.5% 4 ML BTL OS (09:47)
[2021-10-19] MEDS: Lidocaine 2% Jelly 6 ML SYR (09:48)
[2021-10-19] MEDS: Balanced Salt Soln.-PLUS 500 ML BAG (09:53)
[2021-10-19] MEDS: Duovisc Viscoelastic System EACH 1 EACH (09:53)
[2021-10-19] MEDS: Povidone-Iodine Ophth 30 ML BTL (09:54)
[2021-10-19] MEDS: Triamcinolone 40 MG/ML VIAL (09:58)
[2021-10-19 10:24] VITALS: BP 140/83; PULSE 81; RESP 16; TEMP 36.6; O2SAT 96
--- NOTE | 2021-10-19 10:24 | W.PM.DSUDISC ---
Discharge Plan Disposition Patient Disposition: HOME Condition: Good Discharge Details Attending Provider: Mauri Del Rio Primary Care Provider: Yanely Lobato Home Meds and New Rx's Prescriptions: No Action epinephrine [EpiPen 2-Maciej] 0.3 mg/0.3 mL auto-injector 0.3 mg IM ONCE Qty: 2 0RF Rx Instructions: as a single dose; If used, seek treatment at Emergency Room. albuterol sulfate [ProAir HFA] 90 mcg/actuation HFA aerosol inhaler 1 - 2 puff Inhalation .Q4-6H PRN (Reason: shortness of breath or wheezing) Qty: 3 3RF Label Comments: 10/19 pt reports hasnt taken in some time Rx Instructions: Dispense covered brand albuterol inhaler ipratropium-albuterol 0.5 mg-3 mg(2.5 mg base)/3 mL solution for nebulization 3 ml inhalation BID Qty: 540 12RF Rx Instructions: May also use PRN; not to exceed 6 doses in 24 hours atorvastatin 40 mg tablet 40 mg PO DAILY Qty: 90 3RF lisinopril 40 mg tablet 40 mg PO DAILY Qty: 90 3RF Spiriva with HandiHaler 18 mcg capsule, w/inhalation device 18 mcg inhalation DAILY Qty: 3 3RF Nucala 100 mg/mL auto-injector 100 mg subcut Q4W Qty: 1 12RF Dulera 200-5 mcg/actuation HFA aerosol inhaler 2 puff inhalation BID Qty: 13 10RF amoxicillin-pot clavulanate [Augmentin] 500-125 mg tablet 1 tab PO BID Qty: 14 0RF Discharge Instructions Stand Alone Forms: Post-op Topical Cataract, Press Ganey (DSU) Discharge Orders Discharge Orders: Discharge Order (Routine); Ordered 10/19/21 Ordered By: Mauri Del Rio DS: Diagnosis Discharge Diagnosis (1) Nuclear sclerotic cataract of left eye: Status: Resolved (2) Posterior subcapsular age-related cataract of left eye: Status: Resolved
--- NOTE | 2021-10-19 10:25 | ROE_ITS ---
Date of service: 10/19/21 Time of Service: 10:25 Operative Note Operative Note DATE OF PROCEDURE: 10/19/21 PRE-OP DIAGNOSIS: Nuclear/posterior subcapsular cataract, left eye POST-OP DIAGNOSIS: same PROCEDURE: Cataract extraction using phacoemulsification with intraocular lens implant, left eye SURGEON: Mauri Del Rio ANESTHESIA TYPE: Local By Surgeon and MAC Refer to Anesthesia Record PATHOLOGY: none sent COMPLICATIONS: None Patient was transported to: same day Patient's condition: stable Implants: Case and Case / [employer] Tecnis [id number] Indications: Progressive decreased vision due to cataract, left eye Procedure Description: CATARACT SURGERY OPERATIVE REPORT PREOPERATIVE DIAGNOSIS: 1. Nuclear/posterior subcapsular cataract, left eye POSTOPERATIVE DIAGNOSIS: Same OPERATION: 1. Cataract extraction using phacoemulsification with posterior chamber intraocular lens implant, left eye. IOL: IOL Records Management Assistant/Model: Case & Case / RHETT Tecnis [id number] IOL Power: + 17.5 diopters IOL Serial Number: [id number] Optic Diameter: 6.0 mm Haptic/Overall Diameter: 13.0 mm PHACO INFO: Ruben Mirantisurion Vision System with OZil and Active [employer]uidics Cumulative Dispersed Energy (CDE): 17.99 seconds SURGEON: Mauri Del Rio MD, MAKI ANESTHESIA: Monitored A [facility] (MAC), with local sub-tenon's anesthetic infiltration COMPLICATIONS: None SPECIMENS: None INDICATIONS FOR PROCEDURE: The patient is a 81-year-old gentleman with history of diminished visual acuity in his left eye due to nuclear and posterior subcapsular cataract. He has monocular and has a ocular prosthesis on the right. The option of cataract surgery was offered to the patient and he wished to proceed. PROCEDURE: The correct surgical eye was identified and marked as the left eye and the pupil was dilated in the preoperative area using mydriatics and cycloplegics. The dilated pupil size was thinks area 7.0 mm. The patient elected to proceed without oral sedation. The patient was brought to the operating room where cardiopulmonary monitoring was instituted and surgical time-out was performed, confirming the correct operative eye and IOL power. Topical anesthesia was administered and ophthalmic povidone-iodine 5% was instilled into the conjunctival fornices. Lidocaine gel was applied to the cornea and the selma-ocular area was prepped with Betadine 10% solution and draped in the usual sterile fashion for intraocular surgery, including an aperture drape. A Tegaderm transparent film dressing was cut in half and used to cover the lashes and lid margins. Care was taken to sequester the lashes and lid margins under the Tegaderm dressing. A lid speculum was placed between the lids of the operative eye and the Ruben LuxOR Revalia operating microscope was maneuvered into position. Fly scissors were then used to make a conjunctival buttonhole approximately 6mm posterior to the limbus in the inferonasal quadrant. Blunt dissection was carried out to expose bare sclera, and a blunt-tipped sub-tenon?s anesthesia cannula was introduced and passed posteriorly along the globe where non- preserved plain lidocaine was injected into posterior sub-Tenon?s space. A sideport knife was used to make a paracentesis port superiorly/superiortemporally. Intraocular phenylephrine/lidocaine was injected int the anterior chamber.. The anterior chamber was filled with viscoelastic. A keratome knife was used to construct a 2-plane near-clear corneal tunnel extending 2.0mm into clear cornea temporally. A flap was raised on the anterior capsule and capsulorhexis forceps were used to complete a continuous curvilinear capsulorhexis of 5.5 mm. Balanced salt solution was then used to perform cortical cleaving hydrodissection and nuclear hydrodelineation until the lens could be freely rotated within the capsular bag. The lens nucleus was then disassembled and removed within the capsular bag and iris plane using phacoemulsification. The anterior chamber was noted to be very deep residual cortical material was removed using the 45-degree angled silicone I/A tip with 0.3mm port. The posterior capsule was carefully polished to remove as much residual lens epithelial cells as safely possible. The capsular bag was then inflated and the anterior chamber deepened with viscoelastic. The lens implant described above was inserted into the capsular bag using the RHETT [place] Injector. A Kuglen hook was used to dial the IOL into position. Residual viscoelastic was then removed first from posterior to the IOL, then from the anterior chamber using the I/A handpiece. The lens implant was noted to center nicely within the capsular bag. The incisions were stromally hydrated, and the anterior chamber was reformed using BSS. Then 0.5cc of moxifloxacin 1.0mg/ml were injected into the capsular bag and anterior chamber. The incisions were checked with a Weck spear and found to be secure. At the conclusion of the procedure, Kenalog 20 mg in 0.5 cc were injected into implementation project coordinator ior sub-tenon's space using the anesthesia injection cannula. Several drops of ophthalmic povidone-iodine 5% were then applied to the eye followed by two drops of Imprimis combination prednisolone/moxifloxacin/nepafenac solution. The drapes were removed and a clear plastic protective eye shield was placed over the eye. The patient was then returned to Same Day Surgery in stable condition.
--- NOTE | 2021-10-19 10:37 | W.ANESPOSTOP ---
Postoperative Evaluation Date, Time and Location Date Performed: 10/19/21 Time Performed: 10:33 Patient Location: Day Surgery Unit Vital Signs Most Recent Imported Vital Signs: Most Recent Vital Signs Temp Pulse Resp BP Pulse Ox 36.6 C 81 16 140/83 96 10/19/21 10:24 10/19/21 10:24 10/19/21 10:24 10/19/21 10:24 10/19/21 10:24 Pain Score Most Recent Pain Score: Most Recent Pain Score Pain Level 0 10/19/21 10:24 Assessment Mental Status: Awake (Alert & Oriented to Patient Baseline) Airway and Respiratory Function: Patent airway with normal (patient baseline) respiratory exam Cardiovascular Function: Hemodynamically Stable Hydration Status: Adequately Hydrated Nausea & Vomiting: No Nausea or Vomiting Pain: Pt. Denies Any Pain Peripheral Nerve Block: Patient did not receive a nerve block
== END 2021-10-19 10:55 | disposition home or self-care (01) ==
LOC: SUR 07:54
PROVIDERS: PCP Nurse Practitioner Family; Visit Provider Ophthalmology
PROC: (CPT 66984; principal; 2021-10-19 10:30)
DX: H25.042 Posterior subcapsular polar age-related cataract, left eye (principal); E78.5 Hyperlipidemia, unspecified
CPT/HCPCS: 66984; V2632

== ENCOUNTER → 2021-10-28 01:48 | Outpatient (CLI) | payer MEDICARE, SELFPAY ==
--- NOTE | 2021-10-28 08:09 | DI.RAD_ITS ---
Exam(s) XR CHEST 2V PA LATERAL EXAM: XR CHEST 2V PA LATERAL CLINICAL HISTORY: non resolving cough,R05.9 TECHNIQUE: 2D digital imaging was performed. COMPARISON: CR XR CHEST 2V PA LATERAL from 10/17/2020 FINDINGS: The heart size is normal. Again noted are severe emphysematous changes and pulmonary scarring.. No superimposed infiltrate, effusion or pulmonary edema is seen. IMPRESSION: Severe emphysematous changes. No acute abnormality. DATA REPOSITORY: RADIATION DOSE DELIVERED:
== END ==
PROVIDERS: PCP Nurse Practitioner Family; Visit Provider Student in an Organized Health Care Education/Training Program
DX: R05.9 Cough, unspecified (principal); J43.9 Emphysema, unspecified
CPT/HCPCS: 71046

== ENCOUNTER → 2022-01-04 01:21 | Outpatient (CLI) | payer MEDICARE, SELFPAY ==
--- NOTE | 2022-01-04 06:45 | DI.CT_ITS ---
Exam(s) CT CHEST WO EXAM: CT CHEST WO CLINICAL HISTORY: bronchiectasis from ABPA, more mucus production,b44.81,j47.9 TECHNIQUE: Imaging Protocol: Axial computed tomography images with coronal and sagittal reformatted images were created and reviewed CONTRAST MATERIAL: Noncontrast COMPARISON: CT CT CHEST WO from 12/26/2020 CR XR CHEST 2V PA LATERAL from 10/28/2021 FINDINGS: Exam is somewhat limited by respiratory motion. Tracheobronchial tree: Mild bronchiectasis greatest in right middle lobe. Mild bronchial wall thicken ing.. Mild mucous plugging bilateral lower lobe distal branches.. Mediastinum and Rama: No dominant adenopathy or fluid collection. Pulmonary arteries: Mildly dilated Pulmonary parenchyma: Emphysematous changes greater at the lower lobes. Fibrotic changes throughout. No consolidation. No dominant measurable mass. Pleura: No effusion or pneumothorax. Heart: The heart is mildly dilated. Coronary artery calcifications are seen. Aorta: Thoracic aorta non-dilated. Mild atherosclerotic changes. Upper abdomen: Somewhat limited evaluation due to motion. Lymph nodes: Within normal limits. Bones: Degenerative changes. Soft tissues: Unremarkable. IMPRESSION: Limited exam due to respiratory motion. Bronchiectasis greatest in right middle lobe. Mild bilateral lower lobe mucous plugging. No infiltrates. RADIATION DOSE DELIVERED: 391.83mGy.cm Total DLP DATA REPOSITORY: All CT scans at this facility are submitted to the National Radiology Data Registry (NRDR) Dose Index Registry (DIR) with the [employer] (ACR). RADIATION OPTIMIZATION: All CT scans at this facility use at least one of these dose optimization te chniques: automated exposure control; mA and/or kV adjustment per patient size (includes targeted exa ms where dose is matched to clinical indication); or iterative reconstruction.
== END ==
PROVIDERS: PCP Nurse Practitioner Family; Visit Provider Student in an Organized Health Care Education/Training Program
DX: B44.81 Allergic bronchopulmonary aspergillosis (principal); J47.9 Bronchiectasis, uncomplicated; J98.4 Other disorders of lung
CPT/HCPCS: 71250

== ENCOUNTER 2022-01-22 15:24 | Outpatient (REF) | payer MEDICARE, SELFPAY ==
[2022-01-22 13:07] LABS: Abs Immature Grans 0.05 10^3/uL (0.0-0.06); Absolute Basophil Count 0.04 10^3/uL (0.0-0.2); Absolute Lymphocyte Count 2.54 10^3/uL (1.2-3.4); Absolute Neutrophil Count 9.22 10^3/uL (1.2-6.7); Basophils % 0.3; Eosinophils % 0.6; HCT 41.9 % (40.0-50.0); HGB 13.4 g/dL (13.5-17.5); Immature Grans % 0.4; Lymphocytes % 20.2; MCV 94 fL (80-95); MPV 9.7 fL (8.0-11.0); Monocytes % 5.2; Neutrophils % 73.3; Platelet Count 270 10^3/uL (130-400); RBC 4.47 10^6/uL (4.36-5.78); RDW 12.6 % (11.8-14.1); RDW-SD 43.9 fL; WBC 12.58 10^3/uL (4.4-10.8)
[2022-01-22 13:20] LABS: Absolute Eosinophil Count 0.08 10^3/uL (0.0-0.7); Absolute Monocyte Count 0.65 10^3/uL (0.1-0.8)
[2022-01-22 13:40] LABS: Anion Gap 3.1 mmol/L (3-11); BUN 8 mg/dL (7-18); CO2 33.9 mmol/L (21.0-32.0); CREATININE 0.6 mg/dL (0.70-1.30); Calcium 9.2 mg/dL (8.5-10.1); Calculated LDL 72 mg/dL (<100); Chloride 94 mmol/L (98-107); Cholesterol 150 mg/dL (<200); Glucose 76 mg/dL (74-106); HDL Cholesterol 70 mg/dL (40-60); Potassium 4.7 mmol/L (3.5-5.1); Sodium 131 mmol/L (136-145); Triglyceride 44 mg/dL (<150)
[2022-01-25 08:50] LABS: IgE 1096 IU/mL (<158)
== END 2022-01-22 15:25 | disposition home or self-care (01) ==
LOC: LBN 15:24
PROVIDERS: PCP Nurse Practitioner Family; Visit Provider Student in an Organized Health Care Education/Training Program
DX: B44.81 Allergic bronchopulmonary aspergillosis (principal); E78.5 Hyperlipidemia, unspecified; Z13.1 Encounter for screening for diabetes mellitus
CPT/HCPCS: 80048; 80061; 87305; 82785; 85025

== ENCOUNTER 2022-09-24 12:54 | Outpatient (RCR) | payer MEDICARE, SELFPAY | END 2022-09-24 23:59 | disposition home or self-care (01) | LOC: PRC 12:54 | PROVIDERS: PCP Nurse Practitioner Family; Referring Provider Student in an Organized Health Care Education/Training Program; Visit Provider Student in an Organized Health Care Education/Training Program | DX: J44.9 Chronic obstructive pulmonary disease, unspecified (principal) ==

== ENCOUNTER 2022-10-25 13:30 | Outpatient (RCR) | payer MEDICARE, SELFPAY | END 2022-10-25 23:59 | disposition home or self-care (01) | LOC: PRC 13:30 | PROVIDERS: PCP Nurse Practitioner Family; Referring Provider Student in an Organized Health Care Education/Training Program; Visit Provider Student in an Organized Health Care Education/Training Program | DX: J44.9 Chronic obstructive pulmonary disease, unspecified (principal) | CPT/HCPCS: 94626 ==

== ENCOUNTER 2022-11-24 14:00 | Outpatient (RCR) | payer MEDICARE, SELFPAY | END 2022-11-25 23:59 | disposition home or self-care (01) | LOC: PRC 14:00 | PROVIDERS: PCP Nurse Practitioner Family; Referring Provider Student in an Organized Health Care Education/Training Program; Visit Provider Student in an Organized Health Care Education/Training Program | DX: J44.9 Chronic obstructive pulmonary disease, unspecified (principal); Z51.89 Encounter for other specified aftercare | CPT/HCPCS: 94626 ==

== ENCOUNTER 2022-12-17 14:00 | Outpatient (RCR) | payer MEDICARE, SELFPAY | END 2022-12-25 23:59 | disposition home or self-care (01) | LOC: PRC 14:00 | PROVIDERS: PCP Nurse Practitioner Family; Referring Provider Student in an Organized Health Care Education/Training Program; Visit Provider Student in an Organized Health Care Education/Training Program | DX: Z51.89 Encounter for other specified aftercare; J44.9 Chronic obstructive pulmonary disease, unspecified | CPT/HCPCS: 94626 ==

== ENCOUNTER 2023-04-14 10:20 | Outpatient (REF) | payer MEDICARE, SELFPAY ==
[2023-04-14 15:44] LABS: Anion Gap 1.8 mmol/L (3-11); BUN 14 mg/dL (7-18); CO2 35.2 mmol/L (21.0-32.0); CREATININE 0.6 mg/dL (0.70-1.30); Calcium 9.6 mg/dL (8.5-10.1); Calculated LDL 67 mg/dL (<100); Chloride 101 mmol/L (98-107); Cholesterol 154 mg/dL (<200); Estimated GFR 97.59 (mL/min/1.73m2); Glucose 124 mg/dL (74-106); HDL Cholesterol 79 mg/dL (40-60); Potassium 4.6 mmol/L (3.5-5.1); Sodium 138 mmol/L (136-145); Triglyceride 44 mg/dL (<150)
== END 2023-04-14 10:21 | disposition home or self-care (01) ==
LOC: LBN 10:20
PROVIDERS: PCP Nurse Practitioner Adult Health; Visit Provider Nurse Practitioner Adult Health
DX: I10 Essential (primary) hypertension (principal); E78.5 Hyperlipidemia, unspecified
CPT/HCPCS: 80048; 80061

== ENCOUNTER 2024-04-01 16:59 | Inpatient (IN) | payer MEDICARE, SELFPAY ==
[2024-04-01] VITALS (64 sets, daily range): BP systolic 112–200; BP diastolic 51–114; PULSE 18–114; RESP 2–39; TEMP 36.7–37; O2SAT 80–97
--- NOTE | 2024-04-01 16:45 | RT.EKG_ITS ---
APPROVED REPORT Exam: Resting ECG Reason for Exam: sob Patient Location: E HR:110 bpm ECG Measurements Heart Rate 110 AXIS TN 188 P 236 QRSd 155 QRS -71 QT 365 T 62 QTc 493 Conclusion Sinus or ectopic atrial tachycardia...P axis (-45,135), rate> 99 Right bundle branch block...QRSd>120, terminal axis(90,270) Anteroseptal infarct, age indeterminate...Q >35mS, T neg, V1-V2 Sinus tachycardia rate of [address] segment abnormalities nor T wave version. Significant ar tifact interferes with interpretation.
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
--- NOTE | 2024-04-01 17:00 | DI.RAD_ITS ---
Exam(s) XR PORTABLE CHEST AP EXAM: XR PORTABLE CHEST AP CLINICAL HISTORY: Shortness of breath TECHNIQUE: 2D digital imaging was performed of the chest. One image was obtained. An AP view was ob tained. COMPARISON: CR XR CHEST 2V PA LATERAL from 10/28/2021 FINDINGS: MEDIASTINUM: Normal. HEART: Normal. PULMONARY VASCULATURE: Normal. LUNGS: There are findings of COPD present. Parenchymal of fibrosis is also seen. There are increase d lung markings in the bases. This may represent atelectasis or pneumonia. PLEURAL SPACE: No pleural effusion or pneumothorax. BONE:Within normal limits for the patient's age. OTHER FINDINGS:Normal. IMPRESSION: Increased lung markings seen in the bases bilaterally. This may represent scarring, atelectasis or p neumonia. Please correlate clinically. DATA REPOSITORY: RADIATION DOSE DELIVERED:
[2024-04-01] MEDS: Dexamethasone 10 MG/ML VIAL IVP (17:29)
[2024-04-01 17:32] LABS: BE (Venous) 19 mmol/L (-2-3); HCO3 (Venous) 45 mmol/L (23-28); O2 Sat (Venous) 30 %; TCO2 (Venous) 42 mmol/L (24-29); pH (Venous) 7.32 (7.31-7.41); pO2 (Venous) 21 mmHg
[2024-04-01 17:34] LABS: Abs Immature Grans 0.03 10^3/uL (0.0-0.06); Absolute Basophil Count 0.01 10^3/uL (0.0-0.2); Absolute Eosinophil Count 0.02 10^3/uL (0.0-0.7); Absolute Lymphocyte Count 0.89 10^3/uL (1.2-3.4); Absolute Monocyte Count 0.25 10^3/uL (0.1-0.8); Absolute Neutrophil Count 7.85 10^3/uL (1.2-6.7); Basophils % 0.1 %; Eosinophils % 0.2 %; HCT 40.1 % (40.0-50.0); HGB 12.3 g/dL (13.5-17.5); Immature Grans % 0.3 %; Lymphocytes % 9.8 %; MCH 29.4 pg (27.0-33.0); MCHC 30.7 % (32.0-36.0); MCV 96 fL (80-95); Monocytes % 2.8 %; Neutrophils % 86.8 %; Platelet Count 245 10^3/uL (130-400); RBC 4.19 10^6/uL (4.36-5.78); RDW 11.9 % (11.8-14.1); RDW-SD 41.7 fL; WBC 9.05 10^3/uL (4.4-10.8)
[2024-04-01 17:36] LABS: pCO2 (Venous) 87 mmHg (41-51)
[2024-04-01 17:45] LABS: Prothrombin Time 9.8 sec (9.1-11.1)
[2024-04-01 17:56] LABS: COVID-19 PCR Negative (Negative); Influenza A PCR Negative (Negative); Influenza B PCR Negative (Negative); RSV PCR Negative (Negative)
[2024-04-01 17:56] LABS: ALT 20 U/L (16-63); AST 20 U/L (15-37); Albumin 3.2 g/dL (3.4-5.0); Alkaline Phosphatase 80 U/L (46-116); BUN 11 mg/dL (7-18); CREATININE 0.7 mg/dL (0.70-1.30); Calcium 9.4 mg/dL (8.5-10.1); Chloride 91 mmol/L (98-107); Estimated GFR 92.57 (mL/min/1.73m2); Glucose 118 mg/dL (74-106); Magnesium 1.6 mg/dL (1.8-2.4); NT-proBNP 682 pg/mL (<300); Potassium 5.2 mmol/L (3.5-5.1); Sodium 131 mmol/L (136-145); Total Protein 7.6 g/dL (6.4-8.2); Troponin I 22 ng/L (<or=76)
[2024-04-01] MEDS: CEFEPIME 2 GM in Normal Saline 100 ML IVPB (17:56)
[2024-04-01 17:57] LABS: Source Nasopharynx
[2024-04-01] MEDS: Furosemide 40 MG/4 ML VIAL IVP (17:57)
[2024-04-01 17:58] LABS: Anion Gap -5.00001 mmol/L (3-11); CO2 > 45.0 mmol/L (21.0-32.0)
[2024-04-01 18:13] LABS: D-Dimer 1383 ng/mlFEU (<500)
[2024-04-01 18:28] LABS: Bilirubin Negative (Negative); Blood Negative (Negative); Clarity Clear (Clear); Glucose Negative (Negative); Ketones 15 mg/dL (Negative); Leukocyte Esterase Negative (Negative); Nitrite Negative (Negative)
--- NOTE | 2024-04-01 18:30 | DI.CT_ITS ---
Exam(s) CT CHEST PE CTA EXAM: CT CHEST PE CTA CLINICAL HISTORY: SOB. TECHNIQUE: Imaging Protocol: Axial CT angiography was performed with multi-slice acquisition and mu lti-planar and/or 3D reconstructions. Lung Computer Aided Detection (CAD) was utilized. CONTRAST MATERIAL: Intravenous: Omnipaque 350 contrast volume:65 mL COMPARISON: CT CT CHEST WO from 01/04/2022 FINDINGS: Tracheobronchial tree: There is mild bronchiectasis particularly seen in the lower lobes. Mild mucou s plugging is seen in the lower lobes particularly the right middle and lower lobe. There is bronchi al wall thickening present. Pulmonary parenchyma: Centrilobular emphysematous changes are present. No focal consolidating infilt rates are seen. Parenchymal scarring is seen particularly in the upper lobes. Pulmonary Arteries: No evidence of filling defect to suggest pulmonary emboli. Mediastinum and Rama: No dominant adenopathy or fluid collection. The esophagus is unremarkable. Po ssible small hiatal hernia. Visualized thyroid gland: Unremarkable. Pleura: No effusion or pneumothorax. Heart: The heart is not dilated. Three vessel coronary artery calcification is present. No pericardi al effusion. Aorta: Thoracic aorta non-dilated. No evidence of dissection. Atherosclerotic calcification is presen t. There is artifact seen in the anterior aspect of the distal descending thoracic aorta. Upper abdomen: Due to the timing of the bolus there is suboptimal opacification of the visualized ab dominal organs. Soft tissues: Unremarkable. Bones: Within normal limits for the patient's age. IMPRESSION: 1. No evidence of pulmonary embolism, thoracic aortic dissection or aneurysm. 2. Centrilobular emphysematous changes are present. 3. Bronchiectasis with bronchial wall thickening and mucous plugging. Findings can be seen with bron chitis. Please correlate clinically. RADIATION DOSE DELIVERED: 44.53mGy.cm Total DLP DATA REPOSITORY: All CT scans at this facility are submitted to the National Radiology Data Registry (NRDR) Dose Index Registry (DIR) with the [employer] (ACR). RADIATION OPTIMIZATION: All CT scans at this facility use at least one of these dose optimization te chniques: automated exposure control; mA and/or kV adjustment per patient size (includes targeted exa ms where dose is matched to clinical indication); or iterative reconstruction.
[2024-04-01] MEDS: Lidocaine 2% Jelly 11 ML SYR (18:52)
[2024-04-01] MEDS: Lidocaine 2% Jelly 6 ML SYR (18:52)
[2024-04-01] MEDS: Normal Saline Flush 10 ML SYR IVP (19:00)
[2024-04-01] MEDS: Omnipaque 350 MG/ML 100 ML BTL IJ (19:00)
[2024-04-01] MEDS: Normal Saline - Diluent 50 ML VIAL IJ (19:01)
--- NOTE | 2024-04-01 19:04 | DI.VRAD_ITS ---
PROCEDURE INFORMATION: Exam: XR Chest Exam date and time: 04/01/2024 6:19 PM Age: 83 years old Clinical indication: Shortness of breath TECHNIQUE: Imaging protocol: Radiologic exam of the chest. Views: 1 view. COMPARISON: CT CHEST WO 01/04/2022 8:30 AM FINDINGS: Lungs: The lungs are hyperinflated, consistent with underlying small airways disease and COPD. There are diffuse chronic and possibly mild acute interstitial infiltrates present. This may represent cardiogenic versus noncardiogenic edema. An acute inflammatory process and/or infectious process/pneumonia are not excluded. Pleural spaces: There is no evidence of pneumothorax. There are no pleural effusions present. Heart/Mediastinum: The mediastinal contour is normal. The cardiac structures are normal. Bones/joints: The skeletal structures and soft tissues show no evidence of fracture or other acute processes. Soft tissues: The soft tissues of the extrathoracic region are unremarkable. IMPRESSION: 1. The lungs are hyperinflated, consistent with underlying small airways disease and COPD. 2. There are diffuse chronic and possibly mild acute interstitial infiltrates present. This may represent cardiogenic versus noncardiogenic edema. An acute inflammatory process and/or infectious process/pneumonia are not excluded. Dictated and Authenticated by: Quincy Mccray MD. Ordering:CAMELIA Smart MD
[2024-04-01 19:11] LABS: BE (Venous) 21 mmol/L (-2-3); HCO3 (Venous) 46 mmol/L (23-28); O2 Sat (Venous) 48 %; TCO2 (Venous) 43 mmol/L (24-29); pH (Venous) 7.39 (7.31-7.41); pO2 (Venous) 27 mmHg
[2024-04-01 19:14] LABS: pCO2 (Venous) 76 mmHg (41-51)
[2024-04-01 19:31] LABS: Troponin I 22 ng/L (<or=76)
[2024-04-01] MEDS: Albuterol/Ipratropium 3 ML UPD VIAL UPD ×2 (19:57→23:56)
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
--- NOTE | 2024-04-01 21:01 | DI.VRAD_ITS ---
PROCEDURE INFORMATION: Exam: CTA Chest With Contrast Exam date and time: 04/01/2024 7:17 PM Age: 83 years old Clinical indication: Shortness of breath; Patient HX: SOB TECHNIQUE: Imaging protocol: Computed tomographic angiography of the chest with contrast. Exam focused on the arteries. 3D rendering (Not supervised by radiologist): MIP and/or 3D reconstructed images were created by the technologist. Radiation optimization: All CT scans at this facility use at least one of these dose optimization techniques: automated exposure control; mA and/or kV adjustment per patient size (includes targeted exams where dose is matched to clinical indication); or iterative reconstruction. Contrast material: OMNIIPAQUE 350; Contrast volume: 65 ml; Contrast route: INTRAVENOUS (IV); COMPARISON: CT CHEST WO 01/04/2022 8:30 AM FINDINGS: Pulmonary arteries: No pulmonary embolism identified. Aorta: No thoracic aortic aneurysm or dissection. Thyroid: Thyroid gland partially excluded from view and partially obscured by artifact but grossly unremarkable, as seen, through its visualized portion. Lungs: Emphysema. Pulmonary hyperinflation. COPD suggested. Scattered linear and reticular opacities. Scarring suspected given other findings. Diffuse bronchial wall thickening. Bronchiectatic change in the lower lung zones, most prominent in the right middle lobe. No region of ludmila pulmonary consolidation. Pleural spaces: No pleural effusion or pneumothorax. Heart: Normal-sized heart. Lymph nodes: Scattered small mediastinal and hilar lymph nodes, nonspecific. Bones/joints: No acute fracture seen among the bones of the chest. Soft tissues: No gross soft tissue mass or fluid collection seen in the chest wall. IMPRESSION: 1. Emphysema with pulmonary hyperinflation suggesting COPD. If this finding has not been previously worked up, pulmonary function testing could be obtained for improved evaluation. 2. Extensive bronchial wall thickening. Although nonspecific, bronchial wall thickening is often seen in the setting of acute, chronic, or recurrent bronchitis or aspiration and is commonly seen in smokers. 3. Bronchiectatic change through the lower lung zones, most prominent in the right middle lobe. Bronchiectasis is a nonspecific finding but is commonly seen in the setting of recurrent or chronic infections and/or recurrent aspiration. Dictated and Authenticated by: Jeremy Mc MD. Ordering:CAMELIA Smart MD
[2024-04-01] MEDS: Magnesium Oxide 400 MG TAB PO (22:04)
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
[2024-04-01 23:27] LABS: BE (Venous) 21 mmol/L (-2-3); HCO3 (Venous) 46 mmol/L (23-28); O2 Sat (Venous) 40 %; TCO2 (Venous) 43 mmol/L (24-29); pH (Venous) 7.42 (7.31-7.41); pO2 (Venous) 24 mmHg
--- NOTE | 2024-04-01 23:30 | RESPIRATORY ---
Pt. stated uses O2 2.5L/min NC at baseline 18/10. DME is [facility].
[2024-04-01 23:34] LABS: pCO2 (Venous) 71 mmHg (41-51)
[2024-04-02] VITALS (20 sets, daily range): BP systolic 100–154; BP diastolic 57–81; PULSE 89–124; RESP 2–24; TEMP 36.6–37.2; O2SAT 85–98
[2024-04-02] MEDS: Enoxaparin 40 MG/0.4 ML SYR SC ×2 (00:38→20:19)
[2024-04-02] MEDS: Atorvastatin 40 MG TAB PO ×2 (00:38→20:18)
[2024-04-02] MEDS: Normal Saline Flush 10 ML SYR IVP ×3 (00:39→20:19)
[2024-04-02] MEDS: methylPREDNISolone SUCC 40 MG VIAL IVP (00:39)
[2024-04-02] MEDS: Albuterol/Ipratropium 3 ML UPD VIAL UPD ×2 (05:25→12:21)
[2024-04-02] MEDS: CEFEPIME 2 GM in Normal Saline 100 ML IVPB (05:27)
[2024-04-02 06:35] LABS: HCT 34.8 % (40.0-50.0); MCH 29.3 pg (27.0-33.0); MCHC 31.6 % (32.0-36.0); MCV 93 fL (80-95); MPV 9.6 fL (8.0-11.0); Platelet Count 244 10^3/uL (130-400); RBC 3.75 10^6/uL (4.36-5.78); RDW 11.8 % (11.8-14.1); RDW-SD 40.4 fL; WBC 8.99 10^3/uL (4.4-10.8)
[2024-04-02 07:02] LABS: BUN 13 mg/dL (7-18); CREATININE 0.6 mg/dL (0.70-1.30); Calcium 9.5 mg/dL (8.5-10.1); Estimated GFR 96.98 (mL/min/1.73m2); Glucose 130 mg/dL (74-106)
[2024-04-02 07:03] LABS: Albumin 2.7 g/dL (3.4-5.0); Alkaline Phosphatase 69 U/L (46-116); Bilirubin, Total 0.56 mg/dL (0.2-1.0); CO2 > 45.0 mmol/L (21.0-32.0); Chloride 93 mmol/L (98-107); Potassium 4.6 mmol/L (3.5-5.1); Sodium 134 mmol/L (136-145); Total Protein 6.8 g/dL (6.4-8.2)
[2024-04-02 07:04] LABS: ALT 14 U/L (16-63); AST 18 U/L (15-37); Magnesium 1.7 mg/dL (1.8-2.4)
[2024-04-02] MEDS: Albuterol 2.5 MG/3 ML INH SOLN VIAL UPD (08:52)
[2024-04-02] MEDS: Budesonide/Formoterol 160/4.5 6 GM 60 PUFF INH IH (08:56)
[2024-04-02] MEDS: Lisinopril 20 MG TAB 40 MG PO (08:57)
[2024-04-02] MEDS: predniSONE 20 MG TAB 40 MG PO (08:57)
[2024-04-02] MEDS: Furosemide 40 MG/4 ML VIAL IVP ×2 (08:57→15:40)
[2024-04-02] MEDS: Doxycycline Hyclate 100 MG CAP PO ×2 (08:57→20:18)
--- NOTE | 2024-04-02 09:19 | NUR.NOTE ---
Nursing Note: pt alerted Rn that he was having trouble breathing, O2 obtained and had dipped into the 60's, O2 increasted to 4L via NC, RT paged, O2 increased on 4L to 92%, RT provided pt with Neb. MD notified. Post breathing treatment, pt stated that he no longer wants treatment and would like to just be comfortable, at bedside during conversation with pt. MD and web content writer discussed palliative and hospice option with patient.
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
--- NOTE | 2024-04-02 10:30 | RT.EKG_ITS ---
APPROVED REPORT Exam: Resting ECG Reason for Exam: AFIB on Tele Patient Location: I HR:112 bpm ECG Measurements Heart Rate 112 AXIS TN 133 P -87 QRSd 146 QRS -61 QT 350 T 58 QTc 478 Conclusion Sinus or ectopic atrial tachycardia...P axis (-45,135), rate> 99 Atrial premature complexes...SV complexes w/ short R-R intvls Right bundle branch block...QRSd>120, terminal axis(90,270) Anteroseptal infarct, age indeterminate...Q >35mS, T neg, V1-V2
[2024-04-02] MEDS: Tiotropium Bromide-Respimat 10 PUFF INH 2 PUFF IH (12:21)
--- NOTE | 2024-04-02 12:25 | PGE_ITS ---
Date of Service Date of service: 04/02/24 Time of Service: 12:25 Assessment and Plan Assessment and plan (1) Acute on chronic respiratory failure with hypoxia and hypercapnia: Start date: 04/01/24 Status: Acute Assessment and plan: -Patient normally on about 3 L nasal cannula at home, has required up to 5 L nasal cannula here after ambulation due to significant desaturation to the mid 60s but recovers with appropriate supplemental oxygen -Patient also has chronic hypercapnic respiratory failure though CO2 appears to be baseline at this time -Likely also component of right-sided heart failure for which patient has echocardiogram ordered, will follow-up results -All secondary to COPD exacerbation for which patient was initially on IV steroids and since been transition to 40 mg p.o. prednisone daily will be continued -Patient was also started on cefepime which was continued on admission, however given lack of white blood cell count, and imaging without signs of infiltrate this has been discontinued in favor of doxycycline which will also cover potential cellulitis (see below for details) -Continue daily inhalers and scheduled nebulizer treatments -As noted in subjective, patient has requested palliative care consultation to discuss possibility of transition to hospice care at discharge (2) Asthma-COPD overlap syndrome: Status: Chronic Assessment and plan: - As noted above (3) Hypomagnesemia: Start date: 04/01/24 Status: Acute Assessment and plan: -Repleted with oral magnesium and follow-up lab daily. (4) Cellulitis of right ankle: Start date: 04/01/24 Status: Acute Assessment and plan: - Continue doxycycline as noted above (5) Essential hypertension: Status: Chronic Assessment and plan: -Slightly elevated but continue outpatient medical therapy. Patient also will be on furosemide for what appears to be possible right-sided heart failure. Echocardiogram will be followed up. (6) Hyperlipidemia: Status: Chronic Assessment and plan: Continue statin therapy. Subjective Subjective Interval history since last seen: Patient states that he is feeling a little better as compared to when he was admitted. However, he states that he feels his COPD is end-stage and has requested a palliative care consult for consideration of discharge to hospice after this hospitalization. Exam Narrative Exam Narrative: Chronically ill-appearing cachectic older gentleman laying in bed in mild respiratory distress, ANO x 4, heart rate tachycardic but regular rhythm, rate in the 1 teens, lungs with significant and expiratory wheezing throughout, abdomen soft, nontender, nondistended Objective Last Vital Signs Temp 98.2 F 04/02/24 11:38 Pulse 118 H 04/02/24 11:38 Resp 24 04/02/24 11:38 BP 103/66 04/02/24 11:38 Pulse Ox 89 L 04/02/24 11:38 Laboratory Results - last 24 hr 04/01/24 04/01/24 04/01/24 17:14 17:24 18:15 WBC 9.05 RBC 4.19 L Hgb 12.3 L Hct 40.1 MCV 96 H MCH 29.4 MCHC 30.7 L RDW 11.9 Plt Count 245 MPV 9.0 Immature Gran % 0.3 Neutrophils % 86.8 Lymphocytes % 9.8 Monocytes % 2.8 Eosinophils % 0.2 Basophils % 0.1 Nucleated RBC % 0.0 Absolute Neutrophils 7.85 H Absolute Lymphocytes 0.89 L Absolute Monocytes 0.25 Absolute Eosinophils 0.02 Absolute Basophils 0.01 PT 9.8 INR 1.0 D-Dimer 1383 H VBG pH 7.32 VBG pCO2 87 H* VBG pO2 21 VBG HCO3 45 H VBG Total CO2 42 H VBG O2 Saturation 30 VBG Base Excess 19 H VBG Lactate 1.0 Sodium 131 L Potassium 5.2 H Chloride 91 L Carbon Dioxide > 45.0 H Anion Gap -5.72936 L BUN 11 Creatinine 0.7 Est GFR (CKD-EPI 2020) 92.57 Glucose 118 H Calcium 9.4 Magnesium 1.6 L Total Bilirubin 0.60 AST 20 ALT 20 Alkaline Phosphatase 80 Troponin I 22 NT-Pro-B Natriuret Pep 682 H Total Protein 7.6 Albumin 3.2 L Urine Color Yellow Urine Clarity Clear Urine pH 7.0 Ur Specific Thornton 1.020 Urine Protein Negative Urine Ketones 15 H Urine Blood Negative Urine Nitrite Negative Urine Bilirubin Negative Urine Urobilinogen 1.0 H Ur Leukocyte Esterase Negative Urine Glucose Negative COVID-19 Source Nasopharynx SARS-CoV-2 (PCR) Negative Influenza Type A (PCR) Negative Influenza Type B (PCR) Negative RSV (PCR) Negative 04/01/24 04/01/24 04/01/24 19:07 20:07 23:23 WBC RBC Hgb Hct MCV MCH MCHC RDW Plt Count MPV Immature Gran % Neutrophils % Lymphocytes % Monocytes % Eosinophils % Basophils % Nucleated RBC % Absolute Neutrophils Absolute Lymphocytes Absolute Monocytes Absolute Eosinophils Absolute Basophils PT INR D-Dimer VBG pH 7.39 7.42 H VBG pCO2 76 H* 71 H* VBG pO2 27 24 VBG HCO3 46 H 46 H VBG Total CO2 43 H 43 H VBG O2 Saturation 48 40 VBG Base Excess 21 H 21 H VBG Lactate Sodium Potassium Chloride Carbon Dioxide Anion Gap BUN Creatinine Est GFR (CKD-EPI 2020) Glucose Calcium Magnesium Total Bilirubin AST ALT Alkaline Phosphatase Troponin I 22 Cancelled NT-Pro-B Natriuret Pep Total Protein Albumin Urine Color Urine Clarity Urine pH Ur Specific Thornton Urine Protein Urine Ketones Urine Blood Urine Nitrite Urine Bilirubin Urine Urobilinogen Ur Leukocyte Esterase Urine Glucose COVID-19 Source SARS-CoV-2 (PCR) Influenza Type A (PCR) Influenza Type B (PCR) RSV (PCR) 04/02/24 06:15 WBC 8.99 RBC 3.75 L Hgb 11.0 L Hct 34.8 L MCV 93 MCH 29.3 MCHC 31.6 L RDW 11.8 Plt Count 244 MPV 9.6 Immature Gran % Neutrophils % Lymphocytes % Monocytes % Eosinophils % Basophils % Nucleated RBC % Absolute Neutrophils Absolute Lymphocytes Absolute Monocytes Absolute Eosinophils Absolute Basophils PT INR D-Dimer VBG pH VBG pCO2 VBG pO2 VBG HCO3 VBG Total CO2 VBG O2 Saturation VBG Base Excess VBG Lactate Sodium 134 L Potassium 4.6 Chloride 93 L Carbon Dioxide > 45.0 H Anion Gap BUN 13 Creatinine 0.6 L Est GFR (CKD-EPI 2020) 96.98 Glucose 130 H Calcium 9.5 Magnesium 1.7 L Total Bilirubin 0.56 AST 18 ALT 14 L Alkaline Phosphatase 69 Troponin I NT-Pro-B Natriuret Pep Total Protein 6.8 Albumin 2.7 L Urine Color Urine Clarity Urine pH Ur Specific [place] Urine Protein Urine Ketones Urine Blood Urine Nitrite Urine Bilirubin Urine Urobilinogen Ur Leukocyte Esterase Urine Glucose COVID-19 Source SARS-CoV-2 (PCR) Influenza Type A (PCR) Influenza Type B (PCR) RSV (PCR) PAWSS Have you Been Recently Intoxicated or Drunk Within the Last 30 days?: No Have you Ever Experienced Previous Episodes of Alcohol Withdrawal?: No Have you ever Experienced Withdrawal Seizures?: No Have you ever Experienced Delirium Tremens(DT)s?: No Have you ever undergone Alcohol Rehabilitation Treatment (i.e, inpt ot outpatient treatment programs)?: No Have you ever Experienced Blackouts?: No Have you ever Combined Alcohol with other Downers within the last 90 days?: No Have you ever Combined Alcohol with any other Substance of Abuse during the last 90 days?: No Positive Blood Alcohol level on Presentation? [PCS.BAL]: No Evidence of Increased Autonomic Activity (i.e. HR>120, tremor, sweating, agitation, nausea)?: No Result: 0 Time Spent with Patient Time Spent with Patient: >50 minutes Time was spent: preparing to see the patient(eg.review tests), obtaining and/or reviewing separately otained hiistory, ordering medications,tests, procedures, referring, communicating with other health health care consultant, indepentently interpreting results, counseling the patient and care coordination
[2024-04-02] MEDS: Levalbuterol 1.25 MG/3 ML UPD VIAL UPD ×3 (15:16→23:53)
--- NOTE | 2024-04-02 15:35 | PHA.REVIEW2 ---
Pharmacy Admission Review Admission Clinical Review Admission Pharmacy Review: Cellulitis of right ankle (Acute) Hypomagnesemia (Acute) Acute on chronic respiratory failure with hypoxia and hypercapnia (Acute) voriconazole Adverse Reaction (Intermediate, Verified 04/01/24 18:02) Visual disturbances and lower extremity edema hydrochlorothiazide Adverse Reaction (Mild, Verified 04/01/24 18:02) Low Na+, low Cl-, headaches levocetirizine Adverse Reaction (Verified 04/01/24 18:02) Loss of appetite and more SOB than usual MOLDS AND SMUTS Allergy (Mild, Uncoded 04/01/24 18:02) ASTHMA aspergillous Adverse Reaction (Intermediate, Uncoded 04/01/24 18:02) SOB ANIMAL DANDER Adverse Reaction (Mild, Uncoded 04/01/24 18:02) COUGH Resuscitation Status DNR/DNI Height 5 ft 9 in Weight 40.5 kg Comments Comments/Follow Ups: Watch BP, HR, SCr, mag, labs, for culture results and for med changes (possible renal dose adjustments). Pharmacy Admission Review Renal Dosing Renal Dosing: BUN 13 mg/dL (7-18) 04/02/24 06:15 Creatinine 0.6 mg/dL (0.70-1.30) L 04/02/24 06:15 Medications needing adjustments: Reviewed (Crcl ~33.1 mL/min current meds are okay) Anticoagulation Anticoagulation: Hgb 11.0 g/dL (13.5-17.5) L 04/02/24 06:15 Hct 34.8 % (40.0-50.0) L 04/02/24 06:15 Plt Count 244 10^3/uL (130-400) 04/02/24 06:15 INR 1.0 (0.9-1.1) 04/01/24 17:24 Creatinine 0.6 mg/dL (0.70-1.30) L 04/02/24 06:15 DVT Prophylaxis: Reviewed Medications: Enoxaparin Opiate Usage Evaluate Pain Scale/Pains Meds: N/A Relevant Labs Relevant Labs: Sodium 134 mmol/L (136-145) L 04/02/24 06:15 Potassium 4.6 mmol/L (3.5-5.1) 04/02/24 06:15 Chloride 93 mmol/L (98-107) L 04/02/24 06:15 Magnesium 1.7 mg/dL (1.8-2.4) L 04/02/24 06:15 Electrolytes, C-Reactive P, ESR: Reviewed (PO mag given last night) DM Control DM Control: Glucose 130 mg/dL (74-106) H 04/02/24 06:15 DM Control: Reviewed (No DM noted in medical history, no A1c on file) Cardiac Review Cardiac Review: Troponin I Cancelled 04/01/24 20:07 NT-Pro-B Natriuret Pep 682 pg/mL (<300) H 04/01/24 17:24 BP, HR, EF%: Reviewed (BP has improved since admission, HR has been elevated most of admission. Albuterol was changed to levalbuterol due to tachycardia.) QTc Review QTc: Reviewed (QTc 493 on admission, current meds are okay) IV to PO Switch IV Medications: Reviewed Home Meds Home Med List reviewed: Reviewed Relevent Home Meds Not ordered & why?: albuterol (changed to levalbuterol), epinephrine (PRN), ipratropium/albuterol (has ipratropium and levalbuterol ordered), mepolizuab (only given once every 4 weeks) Current Meds Current Medication Order Review: Intervened (Discontinued duplicate medication orders.) Pharmacy Antibiotic Review Pharmacy Antibiotic Activity: C/S review and Reviewed, no change Comments: Blood cultures are pending. PO doxycyline ordered. Comments Comments/Follow Ups: Watch BP, HR, SCr, mag, labs, for culture results and for med changes (possible renal dose adjustments).
[2024-04-02] MEDS: Ipratropium 0.5 MG/2.5 ML UPD VIAL UPD ×2 (18:12→23:52)
[2024-04-03] VITALS (16 sets, daily range): BP systolic 104–128; BP diastolic 53–74; PULSE 76–115; RESP 2–22; TEMP 36.3–36.8; O2SAT 89–98
[2024-04-03] MEDS: Levalbuterol 1.25 MG/3 ML UPD VIAL UPD ×5 (06:03→23:36)
[2024-04-03] MEDS: Ipratropium 0.5 MG/2.5 ML UPD VIAL UPD ×4 (06:04→23:36)
[2024-04-03] MEDS: Lisinopril 20 MG TAB 40 MG PO (08:00)
[2024-04-03] MEDS: Doxycycline Hyclate 100 MG CAP PO ×2 (08:00→19:19)
[2024-04-03] MEDS: predniSONE 20 MG TAB 40 MG PO (08:00)
[2024-04-03] MEDS: Furosemide 40 MG/4 ML VIAL IVP ×2 (08:00→16:23)
[2024-04-03] MEDS: Normal Saline Flush 10 ML SYR IVP ×2 (08:01→19:17)
[2024-04-03 08:04] LABS: MCH 29.6 pg (27.0-33.0); MCHC 31.4 % (32.0-36.0); MCV 94 fL (80-95); Platelet Count 230 10^3/uL (130-400); RBC 3.71 10^6/uL (4.36-5.78); RDW 12.2 % (11.8-14.1); RDW-SD 42.4 fL; WBC 12.72 10^3/uL (4.4-10.8)
[2024-04-03] MEDS: Tiotropium Bromide-Respimat 10 PUFF INH 2 PUFF IH (08:17)
[2024-04-03 08:19] LABS: ALT 15 U/L (16-63); AST 16 U/L (15-37); Albumin 2.5 g/dL (3.4-5.0); Alkaline Phosphatase 60 U/L (46-116); Anion Gap -4.00001 mmol/L (3-11); BUN 20 mg/dL (7-18); Bilirubin, Total 0.38 mg/dL (0.2-1.0); CO2 > 45.0 mmol/L (21.0-32.0); CREATININE 0.6 mg/dL (0.70-1.30); Calcium 8.9 mg/dL (8.5-10.1); Chloride 95 mmol/L (98-107); Estimated GFR 96.98 (mL/min/1.73m2); Glucose 93 mg/dL (74-106); Magnesium 1.7 mg/dL (1.8-2.4); Potassium 3.9 mmol/L (3.5-5.1); Sodium 136 mmol/L (136-145); Total Protein 6.3 g/dL (6.4-8.2)
--- NOTE | 2024-04-03 08:57 | CMPROGNOTE_ITS ---
Date of service: 04/03/24 Time of Service: 08:57 Care Management Progress Note Progress Note Text Progress Note Text: Vipul was sitting up in bed when CM met with him. He was pleasant in manner and engaged easily with CM. Vipul had a Palliative Consult today and a COLST form was completed. His was present and goals of care were discussed. Vipul indicated to the Palliative provider that he wanted to go to rehab to see if he might be able to get a bit stronger. An order for prn morphine was written and Vipul was given a sound amplification device by Dr. Everett. He stated that it works better than his old hearing aids which cost thousands of dollars. Referrals were sent to the chosen SNFs and CM will follow up with phone calls tomorrow. Discharge Potential Discharge Needs: Other (SNF) Anticipated Barriers to Discharge: Bed availability Patient/Family Education Needs: Review discharge instructions, discuss Ask Me Three Transportation: RCT Plan: Anticipate Vipul will be transferred to a SNF for short term rehab when medically cleared if a bed offer is received. He will follow up with the facility providers and plan of care. Transportation will be determined by disposition. CM will follow and continue to assess for discharge needs. Social Determinants of Health Screening Social Determinants of Health last assessed: 04/03/24 Will the Patient Participate in the Screening?: Yes Do you worry about having a steady place to live?: no Problems where you live: no known problems In the past 12 months, have you had to go without electric, gas, oil or water in your home?: no Have you or anyone in your house had to go without enough food to eat?: no Has lack of transportation kept you from medical appointments or from doing things needed for daily living?: no Has anyone in your life made you feel unsafe or unsupported?: no How hard is it for you to pay for the very basics like food, housing, medical care, and heating? Would you say it is:: Not hard at all Do you want help finding or keeping work or a job?: I do not need or want help If for any reason you need help with day-to-day activities such as bathing, preparing meals, shopping, managing finances, etc., do you get the help you need?: I need a lot more help How often do you feel lonely or isolated from those around you?: Never Do you speak a language other than [place] at home?: No Health Related Social Needs Health related social needs: problems with daily activities (Z73.9)
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
--- NOTE | 2024-04-03 10:57 | W.PM.PROGNOT ---
Date of Service Date of service: 04/03/24 Time of Service: 10:57 Assessment and Plan Assessment and plan (1) Acute on chronic respiratory failure with hypoxia and hypercapnia: Start date: 04/01/24 Status: Acute Assessment and plan: -Patient normally on about 3 L nasal cannula at home, has required up to 5 L nasal cannula here after ambulation due to significant desaturation to the mid 60s but recovers with appropriate supplemental oxygen -Patient also has chronic hypercapnic respiratory failure though CO2 appears to be baseline at this time -Thought to have also had a component of right-sided heart failure though TTE performed on 04/02/2024 did not show any acute findings -All secondary to COPD exacerbation for which patient was initially on IV steroids and since been transition to 40 mg p.o. prednisone daily will be continued -Patient was also started on cefepime which was continued on admission, however given lack of white blood cell count, and imaging without signs of infiltrate this has been discontinued in favor of doxycycline which will also cover potential cellulitis (see below for details) -Continue daily inhalers and scheduled nebulizer treatments -Patient has requested palliative care consultation, however discussion with the patient's is not she is not ready to be his full-time caregiver at home, and given that patient worked with physical therapy he will qualify for discharge to subacute rehab and will likely have long-term plans to transition to hospice following rehab stay (2) Asthma-COPD overlap syndrome: Status: Chronic Assessment and plan: - As noted above (3) Hypomagnesemia: Start date: 04/01/24 Status: Acute Assessment and plan: -Repleted with oral magnesium and follow-up lab daily. (4) Cellulitis of right ankle: Start date: 04/01/24 Status: Acute Assessment and plan: - Continue doxycycline as noted above (5) Essential hypertension: Status: Chronic Assessment and plan: -Slightly elevated but continue outpatient medical therapy. Patient also will be on furosemide for what appears to be possible right-sided heart failure. Echocardiogram will be followed up. (6) Hyperlipidemia: Status: Chronic Assessment and plan: Continue statin therapy. Subjective Subjective Interval history since last seen: Patient states that he is feeling a little better today and is encouraged by his ability to work with physical therapy today. Otherwise he has no other complaints or concerns at this time. Exam Narrative Exam Narrative: Chronically ill-appearing cachectic older gentleman sitting up in the chair no acute distress, baseline [address] L nasal cannula in place, ANO x 4, heart rate tachycardic but regular rhythm, rate in the 110's, lungs with significant and expiratory wheezing throughout, abdomen soft, nontender, nondistended Objective Last Vital Signs Temp 98.2 F 04/03/24 07:38 Pulse 102 H 04/03/24 07:38 Resp 18 04/03/24 07:38 BP 117/74 04/03/24 07:38 Pulse Ox 92 04/03/24 08:17 Laboratory Results - last 24 hr 04/03/24 07:52 WBC 12.72 H RBC 3.71 L Hgb 11.0 L Hct 35.0 L MCV 94 MCH 29.6 MCHC 31.4 L RDW 12.2 Plt Count 230 MPV 9.0 Sodium 136 Potassium 3.9 Chloride 95 L Carbon Dioxide > 45.0 H Anion Gap -4.20667 L BUN 20 H Creatinine 0.6 L Est GFR (CKD-EPI 2020) 96.98 Glucose 93 Calcium 8.9 Magnesium 1.7 L Total Bilirubin 0.38 AST 16 ALT 15 L Alkaline Phosphatase 60 Total Protein 6.3 L Albumin 2.5 L PAWSS Have you Been Recently Intoxicated or Drunk Within the Last 30 days?: No Have you Ever Experienced Previous Episodes of Alcohol Withdrawal?: No Have you ever Experienced Withdrawal Seizures?: No Have you ever Experienced Delirium Tremens(DT)s?: No Have you ever undergone Alcohol Rehabilitation Treatment (i.e, inpt ot outpatient treatment programs)?: No Have you ever Experienced Blackouts?: No Have you ever Combined Alcohol with other Downers within the last 90 days?: No Have you ever Combined Alcohol with any other Substance of Abuse during the last 90 days?: No Positive Blood Alcohol level on Presentation? [PCS.BAL]: No Evidence of Increased Autonomic Activity (i.e. HR>120, tremor, sweating, agitation, nausea)?: No Result: 0 Time Spent with Patient Time Spent with Patient: >50 minutes Time was spent: preparing to see the patient(eg.review tests), obtaining and/or reviewing separately otained hiistory, ordering medications,tests, procedures, referring, communicating with other health care partner, indepentently interpreting results, counseling the patient and care coordination
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
[2024-04-03] MEDS: Enoxaparin 40 MG/0.4 ML SYR SC (19:16)
[2024-04-03] MEDS: Acetaminophen 325 MG TAB PO (19:18)
[2024-04-03] MEDS: Atorvastatin 40 MG TAB PO (19:18)
[2024-04-04] VITALS (11 sets, daily range): BP systolic 108–111; BP diastolic 70–71; PULSE 71–112; RESP 5–22; TEMP 37–37.4; O2SAT 89–98
[2024-04-04] MEDS: Ipratropium 0.5 MG/2.5 ML UPD VIAL UPD ×4 (05:49→23:30)
[2024-04-04] MEDS: Levalbuterol 1.25 MG/3 ML UPD VIAL UPD ×4 (05:50→23:35)
[2024-04-04 07:05] LABS: HCT 35.2 % (40.0-50.0); HGB 11.1 g/dL (13.5-17.5); MCH 29.4 pg (27.0-33.0); MCHC 31.5 % (32.0-36.0); MCV 93 fL (80-95); MPV 9.1 fL (8.0-11.0); Platelet Count 227 10^3/uL (130-400); RBC 3.78 10^6/uL (4.36-5.78); RDW 12.1 % (11.8-14.1); WBC 10.59 10^3/uL (4.4-10.8)
[2024-04-04 07:37] LABS: ALT 12 U/L (16-63); AST 18 U/L (15-37); Albumin 2.4 g/dL (3.4-5.0); Alkaline Phosphatase 63 U/L (46-116); BUN 27 mg/dL (7-18); Bilirubin, Total 0.27 mg/dL (0.2-1.0); CREATININE 0.5 mg/dL (0.70-1.30); Calcium 8.9 mg/dL (8.5-10.1); Chloride 91 mmol/L (98-107); Estimated GFR 102.47 (mL/min/1.73m2); Glucose 100 mg/dL (74-106); Magnesium 1.8 mg/dL (1.8-2.4); Potassium 4.3 mmol/L (3.5-5.1); Sodium 135 mmol/L (136-145); Total Protein 6.3 g/dL (6.4-8.2)
[2024-04-04 07:41] LABS: Anion Gap -1.00001 mmol/L (3-11); CO2 > 45.0 mmol/L (21.0-32.0)
[2024-04-04] MEDS: Tiotropium Bromide-Respimat 10 PUFF INH 2 PUFF IH (08:07)
[2024-04-04] MEDS: Acetaminophen 325 MG TAB PO (08:20)
[2024-04-04] MEDS: Doxycycline Hyclate 100 MG CAP PO ×2 (08:20→19:52)
[2024-04-04] MEDS: Furosemide 40 MG/4 ML VIAL IVP ×2 (08:20→16:12)
[2024-04-04] MEDS: Normal Saline Flush 10 ML SYR IVP ×3 (08:20→19:52)
[2024-04-04] MEDS: Lisinopril 20 MG TAB 40 MG PO (08:20)
[2024-04-04] MEDS: predniSONE 20 MG TAB 40 MG PO (08:20)
--- NOTE | 2024-04-04 09:20 | CMPROGNOTE_ITS ---
Date of service: 04/04/24 Time of Service: 09:20 Care Management Progress Note Progress Note Text Progress Note Text: Vipul was sitting up in bed visiting with his Oswaldo when CM met with him. He seemed to be in good spirits and readily engaged with CM. Vipul received and accepted a bed offer from [facility] for tomorrow. He will likely transport via RCT coordinated by HARJIT. Vipul and Oswaldo had several questions about the group home Medicaid application they are working on. CM made several calls to try to obtain the information and is expecting return calls tomorrow. Discharge Potential Discharge Needs: Other (SNF) Anticipated Barriers to Discharge: Bed availability Patient/Family Education Needs: Review discharge instructions, discuss Ask Me Three Transportation: RCT (Anticipate Vipul will be transferred to a SNF for short term rehab when medically cleared i) Plan: Anticipate Vipul will transfer to [facility] for short term rehab tomorrow. He will follow up with the facility providers and plan of care and transport via RCT coordinated by. HARJIT. CM will follow and continue to assess for discharge needs. Social Determinants of Health Screening Social Determinants of Health last assessed: 04/04/24 Will the Patient Participate in the Screening?: Yes Do you worry about having a steady place to live?: no Problems where you live: no known problems In the past 12 months, have you had to go without electric, gas, oil or water in your home?: no Have you or anyone in your house had to go without enough food to eat?: no Has lack of transportation kept you from medical appointments or from doing things needed for daily living?: no Has anyone in your life made you feel unsafe or unsupported?: no How hard is it for you to pay for the very basics like food, housing, medical care, and heating? Would you say it is:: Not hard at all Do you want help finding or keeping work or a job?: I do not need or want help If for any reason you need help with day-to-day activities such as bathing, preparing meals, shopping, managing finances, etc., do you get the help you need?: I need a lot more help How often do you feel lonely or isolated from those around you?: Never Do you speak a language other than [place] at home?: No Health Related Social Needs Health related social needs: problems with daily activities (Z73.9)
--- NOTE | 2024-04-04 10:48 | PTTR_ITS ---
PT Notes Visit Reasons: acute on chronic hypercapnic/hypoxic resp fail/CHF Inpatient Physical Therapy Treatment Note [facility] Date: 04/04/2024 PRECAUTIONS:Oxygen continuous (currently 2L/min at rest supine requiring increase to 3L min with activity) SUBJECTIVE: Pt reports he takes along time to eat meals because he gets so short of breath. He wants to eat more but states for now he will keep drinking the Boost to get some nutrition. OBJECTIVE: Pt presented upright in bed with auditory amplifier on and attempting to open his BOOST shake. Oxygen on 2L/min less tachypneic than prior session ? PAIN: right LE distal third of poon to mid foot 11/04 VITALS: ? Pre-Treatment: 96% supine on 2L/Min via NC ?during treatment : 82% on 2L, increased to 3L 88% in 1 min then to 91% after 3 mins of seated rest with trunk support Post-Treatment: 93 % at end of Therapeutic Activities ([id number][]): Direct one-on-one instruction in dynamic activities to improve functional performance. ? BED MOBILITY/TRANSFERS: Minimal cueing provided for use of B hands as needed for support, movement sequence, AD management, and posture to reduce fall risk and minimize pain report?in right ankl/foot? semireclined to sit at EOB with HOB elevated to 60 degrees CGA and cues . Sit-stand: min A from bed at 19 height with cues to push up from bed to FWW? ?x 3 trials , from tall recliner with CGA cues to push up x 1 trial ? Stand-sit: min A x 3 trials to control descent to bed and 100% cueing to reach back to allow arms to assist with lowering process.;stand by assist onto tall recliner Ambulation 10 feet x 2 with FWW CGA for transfers. pt with fast conrad not responsive to cues to move slowly. Pt fearful of walking further stating he is too weak at this time. Pt did not demonstrate any LE instability during the short distance Neuromuscular Re-education (07764): Activities that facilitate re-education of movement balance, posture, coordination, and proprioception or kinesthetic sense, requiring skilled tactile and verbal cues ?- facilitation of sit and stand posture with BUE . Pt performed 6 mins sitting without trunk support with BUE and LE support at edge of bed and 30 -50 sec x 3trials with FWW with CGA and cues for head up and trunk extension cues for breath control. requiring sit rest between. ASSESSMENT:? Jairo noted to be less tachypneic this session at rest. Pt continues with WEST with tachypnea sats dropping to 82% requiring increased supplemental oxygen to 3L/min from 2 and 5mins to recover to 91%. Pt demonstrates short inhalation and exhalation. With cueing, pt able to reduce respiratory rate with longer slower inhalation and exhalation. Pt requires cues to reduce speed of movement to reduce risk for falls. Pt benefits from calm slow approach allowing for rest periods.Pt weight was taken 3 times on the standing scale with it zeroed out prior to each weight. Pt was 110.2pounds / 49.986 Kg each time with gaitbelt, gown and hat on. PLAN: 1-2x/day, 7 days/week x 1 week. Plan of care has been reviewed with the WAREHOUSE ADMINISTRATOR providing the service under Physical Therapy direction. Initiate Physical Therapy intervention for strengthening, bed mobility, transfers, gait, stairs, balance training, use of assistive device. TREATMENT CODE/TIME: 68928 x 32 mins for 2 units, 80841 x 10 mins for 1 unit DISCHARGE RECOMMENDATION: SNF for strengthening, improving functional activity tolerance for self care tasks
[2024-04-04] MEDS: MORPHine Oral Concentrate 20 MG/ML PO ×3 (11:22→21:05)
--- NOTE | 2024-04-04 13:38 | W.PM.PROGNOT ---
Date of Service Date of service: 04/04/24 Time of Service: 13:38 Assessment and Plan Assessment and plan (1) Acute on chronic respiratory failure with hypoxia and hypercapnia: Start date: 04/01/24 Status: Acute Assessment and plan: -Patient normally on about 3 L nasal cannula at home, has required up to 5 L nasal cannula here after ambulation due to significant desaturation to the mid 60s but recovers with appropriate supplemental oxygen -Patient also has chronic hypercapnic respiratory failure though CO2 appears to be baseline at this time -Thought to have also had a component of right-sided heart failure though TTE performed on 04/02/2024 did not show any acute findings -All secondary to COPD exacerbation for which patient was initially on IV steroids and since been transition to 40 mg p.o. prednisone daily will be continued -Patient was also started on cefepime which was continued on admission, however given lack of white blood cell count, and imaging without signs of infiltrate this has been discontinued in favor of doxycycline which will also cover potential cellulitis (see below for details) -Continue daily inhalers and scheduled nebulizer treatments -Patient has requested palliative care consultation, however discussion with the patient's is not she is not ready to be his full-time caregiver at home, and given that patient worked with physical therapy he will qualify for discharge to subacute rehab and will likely have long-term plans to transition to hospice following rehab stay -Patient spoke with palliative care, despite 60 pound weight loss over the last year, ongoing dyspnea that even precludes patient from being able to finish a meal, minimal functional capacity for ambulation or movement due to significant dyspnea, did not think that the patient was ready for hospice care (2) Asthma-COPD overlap syndrome: Status: Chronic Assessment and plan: - As noted above (3) Hypomagnesemia: Start date: 04/01/24 Status: Acute Assessment and plan: -Repleted with oral magnesium and follow-up lab daily. (4) Cellulitis of right ankle: Start date: 04/01/24 Status: Acute Assessment and plan: - Continue doxycycline as noted above (5) Essential hypertension: Status: Chronic Assessment and plan: -Slightly elevated but continue outpatient medical therapy. Patient also will be on furosemide for what appears to be possible right-sided heart failure. Echocardiogram will be followed up. (6) Hyperlipidemia: Status: Chronic Assessment and plan: Continue statin therapy. Subjective Subjective Interval history since last seen: Patient states that he is doing well today and is looking forward to going to rehab tomorrow. He has no complaints or concerns at this time. Exam Narrative Exam Narrative: Chronically ill-appearing cachectic older gentleman sitting up in the chair no acute distress, baseline [address] cannula in place, ANO x 4, heart rate tachycardic but regular rhythm, rate in the 110's, lungs with significant and expiratory wheezing throughout, abdomen soft, nontender, nondistended Objective Last Vital Signs Temp 98.6 F 04/04/24 08:17 Pulse 101 H 04/04/24 10:52 Resp 22 04/04/24 10:52 BP 111/71 04/04/24 08:17 Pulse Ox 92 04/04/24 10:52 Laboratory Results - last 24 hr 04/04/24 06:50 WBC 10.59 RBC 3.78 L Hgb 11.1 L Hct 35.2 L MCV 93 MCH 29.4 MCHC 31.5 L RDW 12.1 Plt Count 227 MPV 9.1 Sodium 135 L Potassium 4.3 Chloride 91 L Carbon Dioxide > 45.0 H Anion Gap -1.36760 L BUN 27 H Creatinine 0.5 L Est GFR (CKD-EPI 2020) 102.47 Glucose 100 Calcium 8.9 Magnesium 1.8 Total Bilirubin 0.27 AST 18 ALT 12 L Alkaline Phosphatase 63 Total Protein 6.3 L Albumin 2.4 L PAWSS Have you Been Recently Intoxicated or Drunk Within the Last 30 days?: No Have you Ever Experienced Previous Episodes of Alcohol Withdrawal?: No Have you ever Experienced Withdrawal Seizures?: No Have you ever Experienced Delirium Tremens(DT)s?: No Have you ever undergone Alcohol Rehabilitation Treatment (i.e, inpt ot outpatient treatment programs)?: No Have you ever Experienced Blackouts?: No Have you ever Combined Alcohol with other Downers within the last 90 days?: No Have you ever Combined Alcohol with any other Substance of Abuse during the last 90 days?: No Positive Blood Alcohol level on Presentation? [PCS.BAL]: No Evidence of Increased Autonomic Activity (i.e. HR>120, tremor, sweating, agitation, nausea)?: No Result: 0 Time Spent with Patient Time Spent with Patient: >50 minutes Time was spent: preparing to see the patient(eg.review tests), obtaining and/or reviewing separately otained hiistory, ordering medications,tests, procedures, referring, communicating with other health neonatal intensive care unit nurse, indepentently interpreting results, counseling the patient and care coordination
[2024-04-04] MEDS: Atorvastatin 40 MG TAB PO (19:52)
[2024-04-04] MEDS: Enoxaparin 40 MG/0.4 ML SYR SC (19:53)
[2024-04-05] VITALS (7 sets, daily range): BP systolic 95–104; BP diastolic 56–62; PULSE 91–96; RESP 8–19; TEMP 36.6–37; O2SAT 93–99
[2024-04-05] MEDS: Ipratropium 0.5 MG/2.5 ML UPD VIAL UPD ×2 (05:03→12:43)
[2024-04-05] MEDS: Levalbuterol 1.25 MG/3 ML UPD VIAL UPD ×2 (05:07→12:43)
[2024-04-05] MEDS: MORPHine Oral Concentrate 20 MG/ML PO ×3 (05:27→12:13)
[2024-04-05] MEDS: Tiotropium Bromide-Respimat 10 PUFF INH 2 PUFF IH (08:44)
[2024-04-05] MEDS: Polyethylene Glycol 3350 17 GM PACKET PO (08:59)
[2024-04-05] MEDS: Doxycycline Hyclate 100 MG CAP PO (08:59)
[2024-04-05] MEDS: predniSONE 20 MG TAB 40 MG PO (08:59)
[2024-04-05] MEDS: Lisinopril 20 MG TAB 40 MG PO (08:59)
[2024-04-05] MEDS: Furosemide 40 MG/4 ML VIAL IVP (09:00)
[2024-04-05] MEDS: Normal Saline Flush 10 ML SYR IVP (09:03)
--- NOTE | 2024-04-05 09:30 | PDOC.CMDIS ---
Date of service: 04/05/24 Time of Service: 09:30 LACE Index Scoring Tool Questions: Length of Stay (in days): 4 - 6 Was the patient admitted via the E.D.?: Yes Comorbidities: Chronic Pulmonary Disease E.D. Visits: 1 Answers: Total Score: 10 Risk of Readmission: High Risk Care Management Discharge Plan Reason for Hospitalization: Pneumonia Discharge Plan: Vipul will be transferred to [facility] for short term rehab prior to returning home. He will follow up with the facility providers and plan of care and transport via RCT coordinated by CM. Patient/Family Education Needs: Review discharge instructions, limitations, follow up plan and discuss Ask Me Three Services Needed at Discharge: Retirement Facility SDOH Health Related Social Needs: Health related social needs problems with daily activities (Z73.9)
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
--- NOTE | 2024-04-05 13:20 | NUR.NOTE ---
Nursing Note: Report called to [facility] and given to RICARDO Castillo.
--- NOTE | 2024-04-05 15:02 | PT.INTREAT ---
PT Notes Visit Reasons: acute on chronic hypercapnic/hypoxic resp fail/CHF Inpatient Physical Therapy Treatment Note [facility] Date: 04/05/2024 PRECAUTIONS:Oxygen continuous (currently 3L/min at rest 3L min with activity) SUBJECTIVE: Pt reports he is going to rehab sometime today. He reports he has not been back to bed. OBJECTIVE: Pt presented seated in chair. oxygen in place ? PAIN: right LE distal third of poon to mid foot 09/04 VITALS: ? Pre-Treatment: 96% supine on 3L/Min via NC ?during treatment : 91% increased to 94% seated rest with trunk support Post-Treatment: 93 % at end of session Therapeutic Activities ([id number][]): Direct one-on-one instruction in dynamic activities to improve functional performance. ? BED MOBILITY/TRANSFERS: Minimal cueing provided for use of B hands as needed for support, movement sequence, AD management, and posture to reduce fall risk and minimize pain report?in right ankl/foot? semireclined to sit at EOB with HOB elevated to 60 degrees supervision and cues . pt requires increased time Sit-stand: min A from commode at 18 height with cues to push up from bed to FWW? ?x 3 trials , from tall recliner with SBA cues to push up x 1 trial ? Stand-sit: SBA and 100% cueing to reach back to allow arms to assist with lowering process.; Ambulation 30 feet x 2 with FWW SBA . pt with controlled pace/conrad Pt did not demonstrate any LE instability during the short distance Pt denied pain in R LE during ambulation 2nd session : pt participated in ADL care multiple transfers and dressing tasks with assist as stated below Pt requires rest periods to recover while performing dressing. pt amb with FWW SBA 25 feet x 2 maintaining sats >90% ASSESSMENT:? Jairo demonstrates increase tolerance to functional tasks out of bed. He continues to require increase time to complete tasks including ADL dressing and ability to perform toileting hygiene seated independently. Pt able to assist with self caredressing LB once pants above knees and catheter put through pant leg and Supervision with upper body shirt application to get shirt over head. PLAN: 1-2x/day, 7 days/week x 1 week. Plan of care has been reviewed with the POACHER WRINGER OPERATOR providing the service under Physical Therapy direction. Initiate Physical Therapy intervention for strengthening, bed mobility, transfers, gait, stairs, balance training, use of assistive device. TREATMENT CODE/TIME: 1st session:14316 x 1/ [id number] 2nd session: [id number] x 3 /[id number] DISCHARGE RECOMMENDATION: SNF for strengthening, improving functional activity tolerance for self care tasks
== END 2024-04-05 14:05 | disposition skilled nursing facility (03) | DRG 190 ==
LOC: ER 21:18 → MS 22:57
PROVIDERS: Admitting Provider Family Medicine; Emergency Provider Emergency Medicine; PCP Nurse Practitioner Adult Health; Visit Provider Family Medicine
DX: J44.1 Chronic obstructive pulmonary disease with (acute) exacerbation (principal); J96.21 Acute and chronic respiratory failure with hypoxia; J96.22 Acute and chronic respiratory failure with hypercapnia; L03.115 Cellulitis of right lower limb; J82.83 Eosinophilic asthma; L97.318 Non-pressure chronic ulcer of right ankle with other specified severity; E83.42 Hypomagnesemia; E78.5 Hyperlipidemia, unspecified; Z66 Do not resuscitate; J47.9 Bronchiectasis, uncomplicated; I11.0 Hypertensive heart disease with heart failure; H54.61 Unqualified visual loss, right eye, normal vision left eye; I45.10 Unspecified right bundle-branch block; H90.3 Sensorineural hearing loss, bilateral; Z99.81 Dependence on supplemental oxygen; I50.810 Right heart failure, unspecified; Z96.641 Presence of right artificial hip joint
CPT/HCPCS: 00123; 36415; 51702; 71275; 80053; 82805; 85027; 87040; 87637; 93005; 93308; 94640; 96365; 96375; 97162; 97530; 99291; J1650; 71045; 81003; 83605; 83735; 83880; 84484; 85025; 85379; 85610; 93010; 93306; 94660; 94664; 94760; 99223; 99233; 99239; J0692; J1100; J1940; J2919; J3370; J3490; J7512; J7613; J7614; J7620; J7644